=== PATIENT | female | born 1945 | race Caucasian/White ===

== ENCOUNTER 2017-05-31 11:01 | Observation (INO) | payer MEDICARE ==
[~2017-05-31] VITALS: Ht 154.9 cm; Wt 61.5 kg
[~2017-05-31 11:01] MED LIST: ACYC200O PO; AMBI10TA PO; BONI150T PO; ENAL10TA7 PO; METF-324 PO; PRIL2.5P OR; PROT40TA PO; SIMV10TA OR; SULFAMETHOXAZOLE PO; TOPI25TA2 OR; TRIMETHOPRIM PO; VIIB10TA OR; XANA1TAB6 PO
[2017-05-31 11:05] VITALS: BP 160/82; PULSE 69; RESP 17; TEMP 97.9; O2SAT 95
[2017-05-31] MEDS ORDERED: CEPH500C PO (11:24)
[2017-05-31] MEDS ORDERED: TRAM50TA PO (11:24)
[2017-05-31] MEDS ORDERED: SYSTSOL EACH EYE (11:24)
[2017-05-31] MEDS ORDERED: PROM12.54 PO (11:24)
[2017-05-31] MEDS ORDERED: DIPH25CA PO (11:24)
[2017-05-31] MEDS ORDERED: METF1000 PO (11:24)
[2017-05-31] MEDS ORDERED: ALPR1TAB3 PO (11:24)
[2017-05-31] MEDS ORDERED: SUMA50TA2 PO (11:24)
--- NOTE | 2017-05-31 11:57 | PD ---
HPI Chief Complaint: Altered Mental Status Time Seen by Provider: 11:19 Travel History International Travel<30 days: No Contact w/Intl Traveler<30days: No Traveled to known affect area: No History of Present Illness HPI This is a 65-year-old female who presents to the emergency department having had a procedure performed by Dr. 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 Dr. Denise remove the implant and performed a graft on the orbit from the patient's left buttock. Ever since Sunday the patient feels like she is more confused, not herself and having difficulty speaking and walking. She thought it maybe related to medications that she is taking. She is on tramadol for pain. She is a poor historian. Her friend with her says she is definitely not acting herself. I spoke to Dr. Denise on the phone who says that at the time of the procedure there was concern that the patient was mixing up her medications. A friend that was with her said that all of her pills were in the same container and they were concerned she wasn't taking her medications as prescribed. PFSH Past Medical History Hx Anticoagulant Therapy: No (NOT CURRENTLY) Anxiety: Yes (PANIC ATTACKS) Depression: Yes Cancer: No Diabetes: Yes Patient Takes Glucophage: No Diminished Hearing: No Headaches: Yes Hepatitis: No Hiatal Hernia: No Hypertension: Yes Neurologic: Yes (ACOUSTIC NEUROMA) Migraines: Yes Thyroid Disease: Yes (NO LONGER ON MEDS) Tetanus Vaccination: Unknown Influenza Vaccination: Yes ?: Not Menopausal: Yes Past Surgical History Abdominal Surgery: Yes (HERNIA) Eye Surgery: Yes (REPORTS 10 SURGERIES BETWEEN BOTH EYES) Oral Surgery: Yes (OPEN SEPTAL RECONSTRUCTION-ROGELIO TURBINECTOMY) Other Surgery: Yes (BACK SURGERY, BILATERAL HAND SURGERY) Social History Alcohol Use: No Tobacco Use: No Substance Use: No Allergies-Medications (Allergen,Severity, Reaction): Coded Allergies: erythromycin base (Unverified Allergy, Severe, swelling throat, 05/31/17) hydrocodone (Unverified Allergy, Severe, NAUSEA AND HIVES, 05/31/17) morphine (Unverified Allergy, Severe, INCREASED HEART RATE; PARANOID, 05/31) propoxyphene (Unverified Allergy, Severe, HIVES, DYSPHAGIA, SOB, 05/31/17) acetaminophen (Unverified Allergy, Intermediate, Hives, 05/31/17) doxycycline (Unverified Allergy, Unknown, 05/31/17) minocycline (Unverified Allergy, Unknown, 05/31/17) tigecycline (Unverified Allergy, Unknown, 05/31/17) Reported Meds & Prescriptions Reported Meds & Active Scripts Active Reported Systane Opth Drops (Polyethylene Glycol-Propylene Glycol Opth Drp) 0.4-0.3% Soln 1-2 Drop EACH EYE PRN PRN Tramadol (Tramadol HCl) 50 Mg Tab 50 Mg PO Q6H PRN Alprazolam 1 Mg Tab 1 Mg PO Q8H PRN Metformin (Metformin HCl) 1,000 Mg Tab 1,000 Mg PO BIDPC With meals Cephalexin 500 Mg Cap 500 Mg PO Q6H Diphenhydramine (Diphenhydramine HCl) 25 Mg Cap 25 Mg PO HS PRN Sumatriptan (Sumatriptan Succinate) 50 Mg Tab 50 Mg PO ONCE PRN If a satisfactory response has not been obtained at 2 hours, a second dose may be administered Promethazine (Promethazine HCl) 12.5 Mg Tab 25 Mg PO Q6H PRN [Sulfamet/Trim] 800 Mg PO BIDAC Review of Systems ROS Limitations: Poor Historian Physical Exam Narrative GENERAL:Well appearing, no acute distress SKIN: Focused skin assessment warm and dry. HEAD: Atraumatic. Normocephalic. EYES: Pupils equal and round. No injection or drainage. Left orbit is bandaged. ENT: Moist mucous membranes NECK: Trachea midline. CARDIOVASCULAR: Regular rate and rhythm. No murmur appreciated. RESPIRATORY: Clear to auscultation. Breath sounds equal bilaterally. GASTROINTESTINAL: Abdomen soft, non-tender, nondistended. MUSCULOSKELETAL: No obvious deformities. NEUROLOGICAL: Awake but confused. No obvious cranial nerve deficits. Expressive aphasia is present. No upper or lower extremity drift. No upper or lower extremity ataxia. PSYCHIATRIC: Appropriate mood and affect; insight and judgment normal. Data Data Last Documented VS Vital Signs Date Time Temp Pulse Resp B/P (MAP) Pulse Ox O2 Delivery O2 Flow Rate FiO2 05/31/17 12:41 16 96 Room Air 05/31/17 11:05 97.9 69 160/82 (108) Orders Orders Complete Blood Count With Diff (9/21/17 11:44) Comprehensive Metabolic Panel (05/31/17 11:44) ^ Insert Iv (05/31/17 11:44) Urinalysis - C+S If Indicated (05/31/17 11:44) Alcohol (Ethanol) (05/31/17 11:44) Ct Brain W/O Iv Contrast(Rout) (05/31/17 ) Ct Facial Bones W/O Iv Cont (05/31/17 ) Admit Order (Ed Use Only) (05/31/17 13:26) Labs Laboratory Tests Test 05/31/17 12:05 05/31/17 12:58 White Blood Count 8.3 TH/MM3 Red Blood Count 4.69 MIL/MM3 Hemoglobin 13.3 GM/DL Hematocrit 40.1 % Mean Corpuscular Volume 85.5 FL Mean Corpuscular Hemoglobin 28.3 PG Mean Corpuscular Hemoglobin Concent 33.1 % Red Cell Distribution Width 14.2 % Platelet Count 274 TH/MM3 Mean Platelet Volume 7.7 FL Neutrophils (%) (Auto) 82.6 % Lymphocytes (%) (Auto) 13.4 % Monocytes (%) (Auto) 3.6 % Eosinophils (%) (Auto) 0.2 % Basophils (%) (Auto) 0.2 % Neutrophils # (Auto) 6.9 TH/MM3 Lymphocytes # (Auto) 1.1 TH/MM3 Monocytes # (Auto) 0.3 TH/MM3 Eosinophils # (Auto) 0.0 TH/MM3 Basophils # (Auto) 0.0 TH/MM3 CBC Comment DIFF FINAL Differential Comment Blood Urea Nitrogen 13 MG/DL Creatinine 0.53 MG/DL Random Glucose 145 MG/DL Total Protein 7.2 GM/DL Albumin 3.8 GM/DL Calcium Level 8.9 MG/DL Alkaline Phosphatase 79 U/L Aspartate Amino Transf (AST/SGOT) 18 U/L Alanine Aminotransferase (ALT/SGPT) 24 U/L Total Bilirubin 0.4 MG/DL Sodium Level 137 MEQ/L Potassium Level 3.7 MEQ/L Chloride Level 100 MEQ/L Carbon Dioxide Level 29.6 MEQ/L Anion Gap 7 MEQ/L Estimat Glomerular Filtration Rate 116 ML/MIN Ethyl Alcohol Level LESS THAN 3 MG/DL Urine Collection Type CLEAN CATCH Urine Color YELLOW Urine Turbidity CLEAR Urine pH 6.0 Urine Specific [place] 1.021 Urine Protein TRACE mg/dL Urine Glucose (UA) NEG mg/dL Urine Ketones 15 mg/dL Urine Occult Blood MOD Urine Nitrite NEG Urine Bilirubin NEG Urine Leukocyte Esterase NEG Urine RBC 10-14 /hpf Urine WBC 0-2 /hpf Urine Squamous Epithelial Cells > 8 /hpf Urine Bacteria OCC /hpf Microscopic Urinalysis Comment CULT NOT INDICATED Urine Collection Time 12:58 [facility] Medical Decision Making Medical Screen Exam Complete: Yes Emergency Medical Condition: Yes Medical Record Reviewed: Yes (spoke to Dr. Denise over the phone who is the patient's separator operator [employer]. He reports that on Sunday she underwent implant removal and had a graft to the orbit performed with fat from her buttock area.) Interpretation(s) Afebrile, no tachycardia, hypertensive No leukocytosis Electrolytes are reassuring Alcohols negative Urinalysis: Some red blood cells, contaminated with squamous epithelial cells Last [address] 05/31/17 0000 Signed Impressions: Service Date/Time: , May 31, 2017 12:18 - CONCLUSION: 1. Postop changes of previous removal of the left optic globe with fat density in the central left orbit. There is left periorbital soft tissue swelling that is pre-septal. No post septal abnormal fluid collections. No acute bony or sinus abnormalities. Gómez Lewis MD Head CT 05/31/17 0000 Signed Impressions: Service Date/Time: May 12:18 - CONCLUSION: 1. Soft tissue swelling left orbit. 2. No acute intracranial abnormality. Jj White MD Differential Diagnosis Cerebral abscess, meningitis, stroke, polypharmacy Narrative Course This is a 65-year-old female who presents to the emergency department brought in by her friends who were concerned because she's had difficulty finding her words, increasing confusion and she's been disoriented and having memory trouble. On exam she does appear to have an expressive aphasia. She is unable to describe to me the surgery that she had earlier this week and she is unable to communicate to me her ophthalmologic history. She does seem confused. Labs were obtained which are reassuring. There is evidently some concern from her friends that the patient may be mixing up her medications. She also was started on tramadol recently from her surgery. Given the significant decline in her function in the past week I think it's reasonable to place her in observation for an MRI to rule out a central process. I spoke to her separator operator shellfish [employer] recommended CT of the orbits but had a very low suspicion for an infectious process. Patient will be admitted in the setting of altered mental status. Physician Communication Physician Communication Discussed with Dr. Martinez Diagnosis Primary Impression: Altered mental status Qualified Codes: R41.82 - Altered mental status, unspecified Admitting Information Admitting Physician Requests: Observation Madiha Wright MD May 31, 2017 11:57
[2017-05-31 12:15] LABS: AUTOMATED NEUTROPHIL # 6.9 TH/MM3 (1.8-7.7); BASOPHIL % 0.2 % (0.0-2.0); EOSINOPHIL % 0.2 % (0.0-4.0); HEMATOCRIT 40.1 % (35.0-46.0); HEMO FLAGS DIFF FINAL; LYMPH % 13.4 % (9.0-44.0); LYMPHOCYTE # 1.1 TH/MM3 (1.0-4.8); MEAN CELL VOLUME 85.5 FL (80.0-100.0); MEAN CORPUSCULAR HEMOGLOBIN 28.3 PG (27.0-34.0); MEAN CORPUSCULAR HGB CONC 33.1 % (32.0-36.0); MONO % 3.6 % (0.0-8.0); NEUT % 82.6 % (16.0-70.0); PLATELET COUNT 274 TH/MM3 (150-450); RED BLOOD COUNT 4.69 MIL/MM3 (4.00-5.30); RED CELL DISTRIBUTION WIDTH 14.2 % (11.6-17.2); WHITE BLOOD COUNT 8.3 TH/MM3 (4.0-11.0)
[2017-05-31 12:22] LABS: CHLORIDE 100 MEQ/L (98-107); POTASSIUM 3.7 MEQ/L (3.5-5.1); SODIUM (NA) 137 MEQ/L (136-145)
[2017-05-31 12:26] LABS: ANION GAP 7 MEQ/L (5-15); BICARBONATE 29.6 MEQ/L (21.0-32.0); BLOOD UREA NITROGEN 13 MG/DL (7-18)
[2017-05-31 12:27] LABS: ALCOHOL LESS THAN 3 MG/DL (0-5)
[2017-05-31 12:28] LABS: ALT (GPT) 24 U/L (10-53); AST (GOT) 18 U/L (15-37)
[2017-05-31 12:29] LABS: GLOMERULAR FILTRATION RATE 116 ML/MIN (>89)
[2017-05-31 12:30] LABS: TOTAL BILIRUBIN ADULT 0.4 MG/DL (0.2-1.0)
[2017-05-31 12:31] LABS: ALKALINE PHOSPHATASE 79 U/L (45-117)
--- NOTE | 2017-05-31 12:39 | RADRPT ---
EXAM DATE/TIME: 05/31/2017 12:18 [facility] COMPARISON: No previous studies available for comparison. INDICATIONS : Altered mental status. Cephalgia. Left orbital surgery 4 days ago. RADIATION DOSE: 62.91 CTDIvol (mGy) MEDICAL HISTORY : Diabetes mellitus type 2. Hypertension. SURGICAL HISTORY : Fusion, lumbar. Turbinectomy. Multiple eye surgeries. ENCOUNTER: Initial ACUITY: 4 - 6 days PAIN SCALE: 10/10 LOCATION: cranial TECHNIQUE: Multiple contiguous axial images were obtained of the head. Using automated exposure control and adj ustment of the mA and/or kV according to patient size, radiation dose was kept as low as reasonably a chievable to obtain optimal diagnostic quality images. DICOM format image data is available electro nically for review and comparison. FINDINGS: CEREBRUM: The ventricles are normal for age. No evidence of midline shift, mass lesion, hemorrhage or acute in farction. No extra-axial fluid collections are seen. POSTERIOR FOSSA: The cerebellum and brainstem are intact. The 4th ventricle is midline. The cerebellopontine angle i s unremarkable. EXTRACRANIAL: Soft tissue swelling over left orbit SKULL: The calvaria is intact. No evidence of skull fracture. CONCLUSION: 1. Soft tissue swelling left orbit. 2. No acute intracranial abnormality. Jj White MD on May 31, 2017 at 12:35 Board Certified Radiologist. This report was verified electronically.
[2017-05-31 13:09] LABS: BLOOD, URINE MOD (NEG); GLUCOSE,URINE NEG (NEG); KETONE, URINE 15 mg/dL (NEG); NITRITE,URINE NEG (NEG)
[2017-05-31 13:18] LABS: METHOD OF COLLECTION CLEAN CATCH; URINE COLOR YELLOW (YELLW/STRAW); WBC, URINE 0-2 /hpf (0-5)
[2017-05-31 13:19] LABS: BACTERIA, URINE OCC /hpf; COMMENT (UR) CULT NOT INDICATED; CULTURE IF INDICATED CULT NOT INDICATED; SQUAMOUS EPITHELIAL CELL URINE > 8 /hpf (0-5)
[2017-05-31] MEDS ORDERED: GADODIAMIDE PF 287 MG/ML 5 ML VIAL (for RAD MRI) IVCONTRAST ONE (13:28)
--- NOTE | 2017-05-31 13:36 | RADRPT ---
EXAM DATE/TIME: 05/31/2017 12:18 [facility] COMPARISON: CT BRAIN W/O CONTRAST, August 21, 2012, 20:12. INDICATIONS : Altered mental status. Cephalgia. Left orbital surgery 4 days ago. RADIATION DOSE: 34.86 CTDIvol (mGy) MEDICAL HISTORY : Diabetes mellitus type 2. Hypertension. SURGICAL HISTORY : Fusion, lumbar. Turbinectomy. Multiple eye surgeries. ENCOUNTER: Initial ACUITY: 4 - 6 days PAIN SCORE: 10/10 LOCATION: Left facial TECHNIQUE: Volumetric scanning of the facial bones was performed. Using automated exposure control and adjustme nt of the mA and/or kV according to patient size, radiation dose was kept as low as reasonably achiev able to obtain optimal diagnostic quality images. DICOM format image data is available electronicall y for review and comparison. FINDINGS: The left globe has been previously removed. There is fat density in the central left orbit, reportedl y status post recent surgery. There is left periorbital soft tissue swelling. No abnormal fluid colle ctions are identified in the post septal region of the left orbit. The right globe and orbit appear i ntact. The frontal sinus, sphenoid sinus, maxillary sinuses and ethmoid air cells are clear. Mastoid air denisa ls are clear. CONCLUSION: 1. Postop changes of previous removal of the left optic globe with fat density in the central left or bit. There is left periorbital soft tissue swelling that is pre-septal. No post septal abnormal fluid collections. No acute bony or sinus abnormalities. Gómez Lewis MD on May 31, 2017 at 13:29 Board Certified Radiologist. This report was verified electronically.
[2017-05-31 16:00] VITALS: BP 152/85; PULSE 70; RESP 16; TEMP 98.8; O2SAT 95
--- NOTE | 2017-05-31 16:11 | RADRPT ---
EXAM DATE/TIME: 05/31/2017 14:52 [facility] COMPARISON: No previous studies available for comparison. INDICATIONS : Acoustic NeuromaStroke. Confusion and aphasia. CONTRAST: 12 cc Omniscan (gadodiamide) IV MEDICAL HISTORY : Diabetes mellitus type 2. Acoustic neuroma. SURGICAL HISTORY : Left eye removed and neck surgery. ENCOUNTER: Initial ACUITY: 1 day PAIN SCORE: 0/10 LOCATION: Head. TECHNIQUE: Multiplanar, multisequence MRI of the brain was performed both prior to and following the administrat ion of paramagnetic contrast. FINDINGS: The left globe is been enucleated and there is fat in the central left orbit with some periorbital so ft tissue swelling. There is also edema and enhancement within the left orbit. Reportedly left orbit surgery was 4 days ago. No drainable fluid collections identified. Right globe intact. There is a small focus of enhancement in the right internal auditory canal measuring up to about 9 mm x 4 mm most characteristic of a small right-sided vestibular schwannoma. By report this is not signi ficantly changed from [facility]. No masses, hemorrhage or midline shift within the brain. No recent infarction. While mild white matte r ischemic changes. CONCLUSION: 1. No acute findings within the brain. Mild white matter ischemic changes. 2. Small vestibular schwannoma on the right side unchanged from 2012 MRI at [facility]. 3. 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 Reportedly there is recent left orbit surgery. No drainable fluid collections. Gómez Lewis MD on May 31, 2017 at 15:58 Board Certified Radiologist. This report was verified electronically.
[2017-05-31] MEDS ORDERED: SUMAtriptan SUCCINATE 50 MG TAB PO PRN (17:00)
[2017-05-31] MEDS ORDERED: SODIUM CHLORIDE 0.9% FLUSH 10 ML FLUSH IV FLUSH PRN (17:15)
[2017-05-31] MEDS ORDERED: NALOXONE HCL 0.4 MG/ML AMP IV PUSH PRN (17:15)
[2017-05-31] MEDS ORDERED: ARTIFICIAL TEARS OPTH SOLN 15 ML BTL EACH EYE PRN ×2 (17:30→19:15)
[2017-05-31] MEDS: CEPHALEXIN MONOHYDRATE 500 MG CAP PO SCH ×2 (18:26→23:59)
[2017-05-31] MEDS: metFORMIN HCL 500 MG TAB PO SCH (18:26)
[2017-05-31 20:00] VITALS: BP 158/83; PULSE 74; RESP 16; TEMP 98.3; O2SAT 97
[2017-05-31] MEDS: SODIUM CHLORIDE 0.9% FLUSH 10 ML FLUSH IV FLUSH SCH (20:05)
--- NOTE | 2017-05-31 22:49 | MH ---
cc: ARASELI PONCE M.D. DATE OF ADMISSION 05/31/2017 ADMISSION DIAGNOSIS Confusion HISTORY OF PRESENT ILLNESS The patient is a 65-year-old female. The patient is here with her friend who is in the room when I obtained the history. The patient had removal of her left eye prosthesis approximately four days ago from Dr. Denise and since then she has not been feeling quite herself and a little bit confused. The patient states she has been suffering for several months now with excruciating pain in her left eye that was sharp, throbbing, constant pain until she finally went to see the tool hardener. At that point, arrangements were made for surgery and this was undertaken four days ago. According to the patient, she was told that her eye was infected and she understood that they told her that it was septic. The patient was sent home after quite extensive difficult surgery with extensive cleaning, per the patient and her friend. She was sent home on Percocet and Zofran. The patient did not feel well. After arriving home, according to the friend, she took the Percocet and became very nauseous. They thought it was due to the Percocet. They called Dr. Denise. He recommended that she take Benadryl and switched her over to tramadol. This was on Sunday. According to her friend, she continued to use the tramadol for pain. She continued to complain of nausea and was also having some emesis. Apparently, she became concerned because at the time she felt that the patient was acting more confused and not quite herself. She noticed that her speech was a little bit different as well and thus brought her to the emergency room. The patient on her part just tells me that she has been having terrible pain in her eye for the last several months and felt that she waited too long to see medical attention. Unfortunately, she seems to be blaming herself for this. She complains primarily of the nausea to me, however, she does tell me that today the nausea is better and she was able to have some soup for dinner and a fruit bowel. She also states that she was having some headaches when she first came out of the surgery. She denies any headaches presently. She does have a history of migraines for which she takes Imitrex. I am a little bit unable to elicit from her whether or not these headaches were different from her regular migraine headaches. She was having a significant amount of the ocular pain postoperatively as well. This seems to have improved somewhat today. She denies any fevers or chills. She does say that she has been sweating. She just feels that she has not been quite herself, that too many things have been happening to her between the surgery and other facets of her life. Apparently she lost a son within the last year. She has lost three of her five children already. This seems to cause her a great deal of distress. Her friend told me that when she got to the home she had bottles of Xanax and Ambien and she was concerned that perhaps the patient had been mixing her medications and had removed all of these medications prior to her surgery. She was concerned that maybe we were dealing with some polypharmacy. Apparently, since first arriving to the emergency room and at the time that I see her this evening the patient tells me that she is feeling a little bit better. PAST MEDICAL HISTORY 1. Acoustic neuroma 2. Anxiety, 3. Degenerative joint disease, 4. Diabetes 5. She has a history in the past of having reflux, 6. Hypertension 7. Hypothyroidism 8. Migraine headaches PAST SURGICAL HISTORY 1. Abdominoplasty 2. Back surgery, 3. Breast surgery, 4. Ventral hernia repair. 5. Orbital implant and as stated on Sunday she had removal of orbital implant with orbit dermis fat graft from the left buttock. Apparently at the time of the surgery, she was told she had infection. She was also placed on antibiotics which she has been taking. SOCIAL HISTORY She does not currently smoke or consume alcohol. SOCIAL HISTORY She has had three of her children pass away. She currently is living with her daughter and grandson in [place] and travels back and forth. She is not presently employed. MEDICATIONS When she came into the emergency room include 1. Cephalexin 500 mg every 6 hours 2. Alprazolam 1 mg p.o. every 8 hours p.r.n. anxiety Does not appear that she was taking that regularly 3. Imitrex for her migraines 4. Sustane ophthalmic drops 5. Metformin 1000 mg twice a day for diabetes. ALLERGIES ACETAMINOPHEN BEE STINGS DARVOCET DARVON ERYTHROMYCIN LORTAB MORPHINE NEOMYCIN TETRACYCLINE REVIEW OF SYSTEMS See HPI, otherwise noncontributory. PHYSICAL EXAMINATION VITAL SIGNS: temperature is 98.8, pulse is 70, respirations 16, blood pressure is 152/85, pulse ox is 95% on room air. GENERAL: She is alert and oriented sitting on the hospital bed. HEENT: She is normocephalic. her left eye is bandaged and protected. She has an area of ecchymosis over her left nostril. She has a clear oropharynx. NECK: Supple. LUNGS: Clear to auscultation. HEART: Regular rate and rhythm ABDOMEN: Benign. EXTREMITIES: No clubbing, cyanosis or edema. SKIN: A little bit warm and moist to touch even though she did not have any documented fever. LABORATORY DATA Done when she came in Sodium of 137, potassium of 3.7, BUN of 13, creatinine 0.53, random glucose was 145. LFTs were normal. White count was normal. Hemoglobin was 13.3 with hematocrit of 40.1, white count was 8.3, platelet count was 274, neutrophils were 82.6. Her urine showed moderate occult blood but a culture was not indicated. Her ethyl alcohol level was less than three. IMAGING STUDIES CT scan done showed postop changes of previous removal of left optic lobe with fat density in the central left orbit. There is left periorbital soft tissue swelling that is preseptal. Note post septal abnormal fluid collections, no acute bony or sinus abnormalities. CT scan of the brain showed soft tissue swelling in the left orbit, no acute intracranial abnormality. MRI of the brain showed no acute findings within the brain, mild white matter ischemic changes, small vestibular schwannoma on the right sided unchanged from the 2012 MRI at [facility]. Enucleation of left lobe with some edema and enhancement within the left orbit. Reportedly, there is recent left orbit surgery. No drainable fluid collections. ASSESSMENT/PLAN A 71-year-old female brought to the hospital by her friend for concern for confusion and perhaps polypharmacy. At this point, she does not appear to have had any kind of neurological event. She did seem very anxious when I first sat down to interview her. I must have sat with her for a little bit over an hour and she seemed to calm down at we were talking. She certainly may have been having some side effects of the medication, but presently she does not seem in my opinion to be confused, just a little bit more like she is anxious and agitated. Her speech was clear. I found no aphasia. There was no aphasia as expressed by the ER doctor to me on the phone. I think we will continue to monitor her overnight, continue to keep her off her multiple medications and see how she does. 2. For the recent surgery she has had. I am a little bit concerned. I do not think there is an infectious process that may be involved causing some of these behavior changes, however, I am not an tool hardener to evaluate her eye. She is on the Cephalexin. I will continue that. She seems to have no evidence of fever at this point. I will try to contact Dr. Denise tomorrow and consult with him regarding her situation on whether or not I need to get one of the tool hardener here to evaluate her eye as well. 3. Otherwise, for her diabetes we will continue her diabetic medications and diet. Further recommendations as the case develops. MD ANUJA Wright/ /9:32 PM /10:08 PM
[2017-06-01] VITALS: BP 143/81; PULSE 71; RESP 16; TEMP 98.2; O2SAT 97
[2017-06-01 06:00] VITALS: BP 150/78; PULSE 73; RESP 16; TEMP 98.5; O2SAT 97
[2017-06-01] MEDS: CEPHALEXIN MONOHYDRATE 500 MG CAP PO SCH ×2 (06:19→11:50)
[2017-06-01 08:00] VITALS: BP 162/84; PULSE 80; RESP 20; TEMP 97.9; O2SAT 98
--- NOTE | 2017-06-01 11:48 | HHI.PR ---
Subjective Remarks Feels more herself this am. States her nausea is improved. Small amt of diarrhea. No fever or chills. Her eye pain is there but is no longer the throbbing in it, Objective Vitals Vital Signs Date Time Temp Pulse Resp B/P (MAP) Pulse Ox O2 Delivery O2 Flow Rate FiO2 06/01/17 08:00 97.9 80 20 162/84 (110) 98 06/01/17 06:00 98.5 73 16 150/78 (102) 97 06/01/17 00:00 98.2 71 16 143/81 (101) 97 05/31/17 20:00 98.3 74 16 158/83 (108) 97 05/31/17 16:00 98.8 70 16 152/85 (107) 95 05/31/17 12:41 16 96 Room Air Result Diagram: 05/31/17 1205 05/31/17 1205 Objective Remarks alert sitting at side of bed left eye bandaged lungs cta heart rrr no edema A/P Problem List: (1) Altered mental status ICD Codes: R41.82 - Altered mental status, unspecified Status: Resolved Plan: MRI was negative, she is clearer this am. She tells me she stutters a bit when she is anxious . No longer has nausea. She had never taken tramadol in the past and we discussed that the combination of the anesthesia and pain medications may have contributed to her transient episode of confusion. Assessment and Plan Transient episode of confusion resolved. She had stated that she understood that her eye was "septic" or infected. I was actually able to speak to Sr Denise and he clarified that she had no infection when she had the surgery. He offered to see her this afternoon at the [place] office. I relayed the information to her that she had no infection at the time of the surgery and that the cephalexin was more a prophylactic measure. She will make arrangements with her grandson to see Dr Denise today. Her pain level is improved and I advised her to not take the tramadol. Problem Qualifiers (1) Altered mental status: Qualified Codes: R41.82 - Altered mental status, unspecified Valeri Martinez MD Jun 01, 2017 11:48
[2017-06-01] MEDS: metFORMIN HCL 500 MG TAB PO SCH (11:50)
[2017-06-01] MEDS: SODIUM CHLORIDE 0.9% FLUSH 10 ML FLUSH IV FLUSH SCH (11:50)
== END 2017-06-01 12:14 | disposition home or self-care (01) ==
LOC: EDBD → PHED 11:01 → PHEDA 13:27 → PH5A 15:32
PROVIDERS: ADMIT Legal Medicine; ATTEND Legal Medicine
DX: R41.82 Altered mental status, unspecified (principal); I10 Essential (primary) hypertension; G43.909 Migraine, unspecified, not intractable, without status migrainosus; K21.9 Gastro-esophageal reflux disease without esophagitis; F41.0 Panic disorder [episodic paroxysmal anxiety]; E03.9 Hypothyroidism, unspecified; E11.9 Type 2 diabetes mellitus without complications; Z79.84 Long term (current) use of oral hypoglycemic drugs; Z97.0 Presence of artificial eye
CPT/HCPCS: 70450; 70486; 70553; 80053; 80307; 81001; 85025; A9579; G0378; G8987-GP; G8988-GP

== ENCOUNTER 2017-06-03 06:26 | Inpatient (IN) | payer MEDICARE ==
[2017-06-03] VITALS (10 sets, daily range): BP systolic 127–188; BP diastolic 64–98; PULSE 60–90; RESP 16–20; TEMP 98.4–99.1; O2SAT 94–98
[~2017-06-03] VITALS: Ht 157.5 cm; Wt 65.0 kg
[~2017-06-03 06:26] MED LIST changes: -ACYC200O PO; +ALPR1TAB3 PO; -AMBI10TA PO; -BONI150T PO; +CEPH500C PO; -ENAL10TA7 PO; -METF-324 PO; +METF1000 PO; -PRIL2.5P OR; -PROT40TA PO; -SIMV10TA OR; -SULFAMETHOXAZOLE PO; +SUMA50TA2 PO; +SYSTSOL EACH EYE; -TOPI25TA2 OR; -TRIMETHOPRIM PO; -VIIB10TA OR; -XANA1TAB6 PO
[2017-06-03] MEDS ORDERED: PROM25TA10 PO (07:17)
[2017-06-03] MEDS ORDERED: BACIOIN6 LEFT EYE (07:17)
[2017-06-03] MEDS ORDERED: TRAM50TA PO (07:17)
[2017-06-03] MEDS ORDERED: SODIUM CHLORIDE 0.9% FLUSH 5 ML FLUSH IV FLUSH PRN (07:30)
[2017-06-03 08:00] LABS: AUTOMATED NEUTROPHIL # 6.9 TH/MM3 (1.8-7.7); BASOPHIL % 0.4 % (0.0-2.0); EOSINOPHIL % 0.3 % (0.0-4.0); HEMATOCRIT 41.8 % (35.0-46.0); HEMO FLAGS DIFF FINAL; LYMPH % 22.5 % (9.0-44.0); LYMPHOCYTE # 2.3 TH/MM3 (1.0-4.8); MEAN CELL VOLUME 86.6 FL (80.0-100.0); MEAN CORPUSCULAR HEMOGLOBIN 28.2 PG (27.0-34.0); MEAN CORPUSCULAR HGB CONC 32.5 % (32.0-36.0); NEUT % 67.8 % (16.0-70.0); PLATELET COUNT 325 TH/MM3 (150-450); RED BLOOD COUNT 4.83 MIL/MM3 (4.00-5.30); RED CELL DISTRIBUTION WIDTH 14.9 % (11.6-17.2); WHITE BLOOD COUNT 10.2 TH/MM3 (4.0-11.0)
--- NOTE | 2017-06-03 08:07 | RADRPT ---
EXAM DATE/TIME: 06/03/2017 07:41 [place] COMPARISON: CT BRAIN W/O CONTRAST, August 21, 2012, 20:12. MRI BRAIN W & W/O CONTRAST, May 31, 2017, 14 :52. CT BRAIN W/O CONTRAST, May 31, 2017, 12:18. INDICATIONS : Altered mental status following eye surgery six days ago. RADIATION DOSE: 56.35 CTDIvol (mGy) MEDICAL HISTORY : Hypertension. Cardiovascular disease SURGICAL HISTORY : Eye. ENCOUNTER: Initial ACUITY: 1 day PAIN SCALE: 0/10 LOCATION: cranial TECHNIQUE: Multiple contiguous axial images were obtained of the head. Using automated exposure control and adj ustment of the mA and/or kV according to patient size, radiation dose was kept as low as reasonably a chievable to obtain optimal diagnostic quality images. DICOM format image data is available electro nically for review and comparison. FINDINGS: CEREBRUM: The ventricles are normal. There is mild cerebral atrophy with a stable mild periventricular white ma tter low attenuation. No evidence of midline shift, mass lesion, hemorrhage or acute infarction. No extra-axial fluid collections are seen. POSTERIOR FOSSA: The cerebellum and brainstem demonstrate no acute finding. The 4th ventricle is midline. The cerebe llopontine angle is unremarkable. EXTRACRANIAL: The left orbit and globe have a similar appearance to the prior study. There is very low density in t he expected region of the globe. There is mild stranding of the retroconal fat. Optic nerve and extra ocular muscles have a stable appearance. There is decreased swelling compared to the prior study from 3 days ago. SKULL: There is hyperostosis frontalis. No evidence of skull fracture. CONCLUSION: 1. No acute intracranial abnormality is identified. There are stable chronic changes, as above. 2. Left orbit demonstrates a mild degree of less swelling than on the study from 3 days ago but other hoyos appears similar following surgery. Jericho Gilmore MD on June 03, 2017 at 8:01 Board Certified Radiologist. This report was verified electronically.
[2017-06-03 08:08] LABS: APTT (PATIENT) 23.5 SEC (24.3-30.1); PROTHROMBIN TIME - PATIENT 11.2 SEC (9.8-11.6)
--- NOTE | 2017-06-03 08:47 | PD ---
HPI Chief Complaint: Altered Mental Status Time Seen by Provider: 07:32 Travel History International Travel<30 days: No Contact w/Intl Traveler<30days: No Traveled to known affect area: No History of Present Illness HPI 65-year-old female with history of diabetes, hypertension, recently had left eye surgery in [place] due to scarring and inflammation, had been admitted a few days ago for altered mental status and released 2 days ago, presents back to the ER today brought in by her friend because of disorientation. Her friend states that the patient has never been quite right since her surgery, disoriented, has episodes of agitation and disorientation, does not recognize where she is at times, doesn't recognize her friend at times. Patient is currently fairly disoriented in the ER. She is not able to give me a coherent history but was going on. Modifying Factors: None Associated Signs & Symptoms: Worsening altered mental status since surgery a few days ago Risk Factors: Left eye surgery PFSH Past Medical History Hx Anticoagulant Therapy: No (NOT CURRENTLY) Arthritis: No Anxiety: Yes Depression: No Heart Rhythm Problems: No Cancer: No Cardiovascular Problems: Yes High Cholesterol: No Chest Pain: No Congestive Heart Failure: No Diabetes: Yes Patient Takes Glucophage: Yes Diminished Hearing: No Endocrine: Yes Genitourinary: No Headaches: Yes Hepatitis: No Hiatal Hernia: No Hypertension: Yes Immune Disorder: No Medical other: Yes (FIBROMYALGIA; MULTIPLE UTI) Musculoskeletal: Yes Neurologic: No Psychiatric: No Reproductive: No Respiratory: No Migraines: Yes Thyroid Disease: Yes Tetanus Vaccination: < 5 Years Influenza Vaccination: Yes ?: Unknown Menopausal: Yes Past Surgical History Abdominal Surgery: Yes Cardiac Surgery: No Ear Surgery: No Endocrine Surgery: No Eye Surgery: Yes Genitourinary Surgery: No Gynecologic Surgery: No Neurologic Surgery: Yes Oral Surgery: Yes Thoracic Surgery: No Other Surgery: Yes (BACK SURGERY, BILATERAL HAND SURGERY) Social History Alcohol Use: Yes (seldom) Tobacco Use: No Substance Use: No Allergies-Medications (Allergen,Severity, Reaction): Coded Allergies: erythromycin base (Unverified Allergy, Severe, swelling throat, 05/31/17) hydrocodone (Unverified Allergy, Severe, NAUSEA AND HIVES, 05/31/17) morphine (Unverified Allergy, Severe, INCREASED HEART RATE; PARANOID, 05/31) propoxyphene (Unverified Allergy, Severe, HIVES, DYSPHAGIA, SOB, 05/31/17) acetaminophen (Unverified Allergy, Intermediate, Hives, 05/31/17) doxycycline (Unverified Allergy, Unknown, 05/31/17) minocycline (Unverified Allergy, Unknown, 05/31/17) tigecycline (Unverified Allergy, Unknown, 05/31/17) Reported Meds & Prescriptions Reported Meds & Active Scripts Active Reported Bacitracin Opth Oint 500 Unit/Gm Oint 1 Applic LEFT EYE TID Tramadol (Tramadol HCl) 50 Mg Tab 50 Mg PO Q4H PRN Phenergan (Promethazine HCl) 25 Mg Tablet 25 Mg PO Q6H PRN Systane Opth Drops (Polyethylene Glycol-Propylene Glycol Opth Drp) 0.4-0.3% Soln 1-2 Drop EACH EYE PRN PRN Alprazolam 1 Mg Tab 1 Mg PO Q8H PRN Metformin (Metformin HCl) 1,000 Mg Tab 1,000 Mg PO BIDPC With meals Cephalexin 500 Mg Cap 500 Mg PO Q6H Sumatriptan (Sumatriptan Succinate) 50 Mg Tab 50 Mg PO ONCE PRN If a satisfactory response has not been obtained at 2 hours, a second dose may be administered Review of Systems ROS Limitations: Altered Mental Status Physical Exam Narrative GENERAL: Well-developed elderly white female patient currently in moderate distress, awake, alert, fairly disoriented. Not able to give me a coherent history. SKIN: Focused skin assessment warm/dry. HEAD: Atraumatic. Normocephalic. EYES: Right eye pupil is round, reactive to light. Left eye is sutured shut. No significant edema. Notable ecchymosis of the eyelid. ENT: No nasal bleeding or discharge. Mucous membranes pink and moist. NECK: Trachea midline. No JVD. CARDIOVASCULAR: Regular rate and rhythm. No murmur appreciated. RESPIRATORY: No accessory muscle use. Clear to auscultation. Breath sounds equal bilaterally. GASTROINTESTINAL: Abdomen soft, non-tender, nondistended. Hepatic and splenic margins not palpable. MUSCULOSKELETAL: No obvious deformities. No clubbing. No cyanosis. No edema. NEUROLOGICAL: Awake and alert. Fairly disoriented. No obvious cranial nerve deficits. Motor grossly within normal limits. Normal speech. PSYCHIATRIC: Disoriented; insight and judgment. Poor. Data Data Last Documented VS Vital Signs Date Time Temp Pulse Resp B/P (MAP) Pulse Ox O2 Delivery O2 Flow Rate FiO2 06/03/17 07:44 18 98 Room Air 06/03/17 07:17 80 06/03/17 06:56 98.4 Orders Orders Electrocardiogram (06/03/17 07:25) Complete Blood Count With Diff (06/03/17 07:25) Comprehensive Metabolic Panel (06/03/17 07:25) Prothrombin Time / Inr (Pt) (06/03/17 07:25) Act Partial Throm Time (Ptt) (06/03/17 07:25) Troponin I (06/03/17 07:25) Urinalysis - C+S If Indicated (06/03/17 07:25) Blood Glucose (06/03/17 07:25) Ecg Monitoring (06/03/17 07:25) Iv Access Insert/Monitor (06/03/17 07:25) Oximetry (06/03/17 07:25) Sodium Chloride 0.9% Flush (Ns Flush) (06/03/17 07:30) Drug Screen, Random Urine (06/03/17 07:25) Alcohol (Ethanol) (06/03/17 07:25) Ct Brain W/O Iv Contrast(Rout) (06/03/17 07:32) Ns + Kcl 20 Meq Inj (Ns + Kcl 20 Meq Inj (06/03/17 09:15) Labs Laboratory Tests Test 06/03/17 07:00 White Blood Count 10.2 TH/MM3 Red Blood Count 4.83 MIL/MM3 Hemoglobin 13.6 GM/DL Hematocrit 41.8 % Mean Corpuscular Volume 86.6 FL Mean Corpuscular Hemoglobin 28.2 PG Mean Corpuscular Hemoglobin Concent 32.5 % Red Cell Distribution Width 14.9 % Platelet Count 325 TH/MM3 Mean Platelet Volume 8.4 FL Neutrophils (%) (Auto) 67.8 % Lymphocytes (%) (Auto) 22.5 % Monocytes (%) (Auto) 9.0 % Eosinophils (%) (Auto) 0.3 % Basophils (%) (Auto) 0.4 % Neutrophils # (Auto) 6.9 TH/MM3 Lymphocytes # (Auto) 2.3 TH/MM3 Monocytes # (Auto) 0.9 TH/MM3 Eosinophils # (Auto) 0.0 TH/MM3 Basophils # (Auto) 0.0 TH/MM3 CBC Comment DIFF FINAL Differential Comment Prothrombin Time 11.2 SEC Prothromb Time International Ratio 1.0 RATIO Activated Partial Thromboplast Time 23.5 SEC Blood Urea Nitrogen 17 MG/DL Creatinine 0.84 MG/DL Random Glucose 145 MG/DL Total Protein 7.6 GM/DL Albumin 4.1 GM/DL Calcium Level 9.1 MG/DL Alkaline Phosphatase 78 U/L Aspartate Amino Transf (AST/SGOT) 18 U/L Alanine Aminotransferase (ALT/SGPT) 25 U/L Total Bilirubin 0.5 MG/DL Sodium Level 136 MEQ/L Potassium Level 2.9 MEQ/L Chloride Level 99 MEQ/L Carbon Dioxide Level 28.1 MEQ/L Anion Gap 9 MEQ/L Estimat Glomerular Filtration Rate 68 ML/MIN Troponin I LESS THAN 0.02 NG/ML Ethyl Alcohol Level LESS THAN 3 MG/DL MDM Medical Decision Making Medical Screen Exam Complete: Yes Emergency Medical Condition: Yes Medical Record Reviewed: Yes Interpretation(s) EKG shows NSR, no ST elevation or depression, and no arrhythmias. No significant T-wave inversions. Laboratory Tests Test 06/03/17 07:00 Monocytes (%) (Auto) 9.0 % (0.0-8.0) Activated Partial Thromboplast Time 23.5 SEC (24.3-30.1) Random Glucose 145 MG/DL (74-106) Potassium Level 2.9 MEQ/L (3.5-5.1) Estimat Glomerular Filtration Rate 68 ML/MIN (>89) Troponin I LESS THAN 0.02 NG/ML Last [address] 06/03/17 0732 Signed Impressions: Service Date/Time: Saturday, June 03, 2017 07:41 - CONCLUSION: 1. No acute intracranial abnormality is identified. There are stable chronic changes, as above. 2. Left orbit demonstrates a mild degree of less swelling than on the study from 3 days ago but otherwise appears similar following surgery. Jericho Gilmore MD Differential Diagnosis Altered mental status: Metabolic issues versus sepsis versus medication side effect versus withdrawal syndromes versus acute intracranial processes Narrative Course Vital signs are stable in the ER, CAT scan did not show any signs of acute processes and metabolic panel was otherwise unremarkable except for hypokalemia. IV potassium was given in the ER. Patient is still fairly disoriented in the ER and at this point, will need to be admitted for further evaluation and treatment. Case was discussed with Dr. Abdul for evaluation and admission. Diagnosis Primary Impression: Altered mental status Additional Impression: Hypokalemia Admitting Information Admitting Physician Requests: Admit Coy Wright MD Jun 03, 2017 08:47
[2017-06-03 08:54] LABS: ALKALINE PHOSPHATASE 78 U/L (45-117); ALT (GPT) 25 U/L (10-53); ANION GAP 9 MEQ/L (5-15); AST (GOT) 18 U/L (15-37); BICARBONATE 28.1 MEQ/L (21.0-32.0); BLOOD UREA NITROGEN 17 MG/DL (7-18); CHLORIDE 99 MEQ/L (98-107); GLOMERULAR FILTRATION RATE 68 ML/MIN (>89); SODIUM (NA) 136 MEQ/L (136-145); TOTAL BILIRUBIN ADULT 0.5 MG/DL (0.2-1.0)
[2017-06-03 08:58] LABS: ALCOHOL LESS THAN 3 MG/DL (0-5)
[2017-06-03 09:01] LABS: POTASSIUM 2.9 MEQ/L (3.5-5.1)
[2017-06-03] MEDS ORDERED: NS + KCL 20 MEQ INJ 1,000 ML IV ONE (09:15)
--- NOTE | 2017-06-03 09:56 | HHI.HP ---
HPI Service [facility] Hospitalists Primary Care Physician Dr. Ponce Admission Diagnosis altered mental status/hypokalemia Chief Complaint: AMS Travel History International Travel<30 Days: No Contact w/Intl Traveler <30 Da: No Traveled to Known Affected Are: No History of Present Illness Ms. Cowart is a 71 y/o female with HTN, diabetes, hyperlipidemia and hypothyroidism. Pt recently underwent removal of left orbital implant with left orbital dermis fat graft from left buttock and left lower eyelid retraction repair on 05/28/[address] Denise in [place]. After surgery pt was given Percocet and started having vomiting which she attributed to an allergy to Tylenol. The pain meds were changed to tramadol and she was given Zofran and Benadryl. The pt continued to have vomiting and the Zofran was changed to Phenergan. Pts family and friends who are bedside provide the history as the pt is unable to provide much meaningful information. The patient has reportedly had been confused on and off since after the surgery. She was admitted to the [facility] on 05/31. 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 Reportedly there is recent left orbit surgery. No drainable fluid collections. She also had a Maxillofacial CT W/O IV Contrast (05/31/17) which noted post-op changes of previous removal of the left optic globe with fat density in the central left orbit, left periorbital soft tissue swelling that is pre-septal, no post-septal abnormal fluid collections, and no acute bony or sinus abnormalities. It was felt that at time that the confusion might be medication related, specifically the Ultram and was recommended to stop the Ultram. According to the documentation the pt improved clinically with regards to her mental status and was discharged from [facility] on 06/01. Pt continued to take the Ultram and the Phenergan following that discharge. But she was not taking the Ultram very often per the family, pt has taken 3 tablets since Sunday, two of which were yesterday. Pt has not been taking the Benadryl, she only took one dose after the Percocet the first day after surgery. Pt was discharged and was seen by Dr. Denise on Sunday, 06/01, and family reports that the doctor felt that the pt was doing well with regards to the surgery. Family felt that the patient continued to be confused following discharge and yesterday this seemed to worsen. Her family friend has been taking care of her since surgery and reports that she has been exhibiting a lot of confusion and bizarre behavior in the last 24 hours. She reportedly placed dog food in her suitcase and put her tooth brush in the dog crates and was packing clothes in plastic bags. She also reports that the pt seemed to be somewhat aggressive last night which is extremely unusual for her. Pt reports that she "feels hot" for the last day or so and feels that its getting worse and feels "tired" but otherwise denies any other complaints. No reported N/V, SOB, chest pain, abd pain. Pts last BM was Sunday, 06/01. Pt hadn't had a BM since the Sunday prior to surgery. Pt is alert and talking. She is not oriented to time, place or situation. She recognizes her family and friends present at bedside. Pt has not been taking her Enalapril, Levothyroxine, Simvastatin, Ambien since her surgery. Its not clear if the patient has been taking her Xanax or not. Pt had access to the medication but as far as the family and friends are aware she had not been taking it. Review of Systems ROS Limitations: Altered Mental Status Constitutional: DENIES: Fever, Chills Respiratory: DENIES: Shortness of breath Cardiovascular: DENIES: Chest pain Gastrointestinal: DENIES: Abdominal pain, Diarrhea, Nausea, Vomiting Genitourinary: DENIES: Urinary incontinence Integumentary: DENIES: Rash Psychiatric: COMPLAINS OF: Confusion, Agitation Past Family Social History Past Medical History Hx of retinal detachment/infection ([id number]) causing loss of left eye/ anophthalmic socket OS with orbital implant Acoustic neuroma Diabetes mellitus HTN Hypothyroidism Migraine headaches, 3-4 times per week Degenerative joint disease Anxiety GERD Recurrent UTIs Past Surgical History Removal of left orbital implant with left orbital dermis fat graft from left buttock and left lower eyelid retraction repair on 05/28/[address] Denise Multiple surgeries for retinal detachment/infection of the left eye ([id number]) resulting in loss of the left eye and orbital prosthesis Abdominoplasty and hernia repair Bilateral breast augmentation in 2009 Bilateral carpal tunnel release Lumbar surgery Cystoscopy EGD/colonoscopy Reported Medications Bacitracin Opth Oint 500 Unit/Gm Oint 1 Applic LEFT EYE TID Tramadol (Tramadol HCl) 50 Mg Tab 50 Mg PO Q4H PRN Phenergan (Promethazine HCl) 25 Mg Tablet 25 Mg PO Q6H PRN Systane Opth Drops (Polyethylene Glycol-Propylene Glycol Opth Drp) 0.4-0.3% Soln 1-2 Drop EACH EYE PRN PRN Cephalexin 500 Mg Cap 500 Mg PO Q6H -Sumatriptan (Sumatriptan Succinate) 50 Mg Tab 50 Mg PO ONCE PRN -Alprazolam 1 Mg PO Q8H PRN, has not been taken since prior to surgery and pt rarely uses this. -Metformin (Metformin HCl) 1,000 Mg (1/2 tablet) PO BIDPC --Levothyroxine 25mcg PO DAILY, has not been taken since surgery --Enalapril 10mg PO DAILY, has not been taking since surgery --Simvastatin 20Mg PO DAILY, has not been taken since surgery --Ambien 10Mg PO HS PRN Insomnia, has not been taken since prior to surgery Allergies: Coded Allergies: erythromycin base (Unverified Allergy, Severe, swelling throat, 05/31/17) hydrocodone (Unverified Allergy, Severe, NAUSEA AND HIVES, 05/31/17) morphine (Unverified Allergy, Severe, INCREASED HEART RATE; PARANOID, 05/31) propoxyphene (Unverified Allergy, Severe, HIVES, DYSPHAGIA, SOB, 05/31/17) acetaminophen (Unverified Allergy, Intermediate, Hives, 05/31/17) doxycycline (Unverified Allergy, Unknown, 05/31/17) minocycline (Unverified Allergy, Unknown, 05/31/17) tigecycline (Unverified Allergy, Unknown, 05/31/17) Family History Mother from thyroid cancer Social History Denies any alcohol, tobacco or illicit drug use She lives with her daughter and grandson in [place] and travels back and forth between there and here Not currently employed Physical Exam Vital Signs Vital Signs Date Time Temp Pulse Resp B/P (MAP) Pulse Ox O2 Delivery O2 Flow Rate FiO2 06/03/17 07:44 18 98 Room Air 06/03/17 07:17 80 18 127/91 (103) 98 Room Air 06/03/17 07:02 97 Room Air 06/03/17 06:56 98.4 80 16 144/88 (106) 97 Physical Exam GENERAL: This is a well-nourished, well-developed patient, in no apparent distress. SKIN: No rashes, ecchymoses or lesions. Cool and dry. HEENT: Atraumatic. Normocephalic. No temporal or scalp tenderness. Left eye lid is sutured closed, ecchymosis around the left orbit. Right eye twitching but pupil is reactive to light. Airway patent. NECK: Trachea midline, supple, nontender CARDIO: Regular. RESP: CTA bilaterally. No wheezes, rales, or rhonchi. ABD: +BS, soft, non-tender, nondistended. EXT: Extremities without clubbing, cyanosis, or edema. NEURO: Awake, oriented to self only. Pt does not follow commands. Upper extremities and hands are somewhat twitching as well. Laboratory Laboratory Tests Test 06/03/17 07:00 White Blood Count 10.2 Red Blood Count 4.83 Hemoglobin 13.6 Hematocrit 41.8 Mean Corpuscular Volume 86.6 Mean Corpuscular Hemoglobin 28.2 Mean Corpuscular Hemoglobin Concent 32.5 Red Cell Distribution Width 14.9 Platelet Count 325 Mean Platelet Volume 8.4 Neutrophils (%) (Auto) 67.8 Lymphocytes (%) (Auto) 22.5 Monocytes (%) (Auto) 9.0 Eosinophils (%) (Auto) 0.3 Basophils (%) (Auto) 0.4 Neutrophils # (Auto) 6.9 Lymphocytes # (Auto) 2.3 Monocytes # (Auto) 0.9 Eosinophils # (Auto) 0.0 Basophils # (Auto) 0.0 CBC Comment DIFF FINAL Differential Comment Prothrombin Time 11.2 Prothromb Time International Ratio 1.0 Activated Partial Thromboplast Time 23.5 Blood Urea Nitrogen 17 Creatinine 0.84 Random Glucose 145 Total Protein 7.6 Albumin 4.1 Calcium Level 9.1 Alkaline Phosphatase 78 Aspartate Amino Transf (AST/SGOT) 18 Alanine Aminotransferase (ALT/SGPT) 25 Total Bilirubin 0.5 Sodium Level 136 Potassium Level 2.9 Chloride Level 99 Carbon Dioxide Level 28.1 Anion Gap 9 Estimat Glomerular Filtration Rate 68 Troponin I LESS THAN 0.02 Ethyl Alcohol Level LESS THAN 3 Result Diagram: 06/03/17 0700 06/03/17 0700 Imaging Last Impressions Head CT 06/03/17 0732 Signed Impressions: Service Date/Time: Saturday, June 03, 2017 07:41 - CONCLUSION: 1. No acute intracranial abnormality is identified. There are stable chronic changes, as above. 2. Left orbit demonstrates a mild degree of less swelling than on the study from 3 days ago but otherwise appears similar following surgery. Jericho Gilmore MD MRI Brain (05/31/17) 1. No acute findings within the brain. Mild white matter ischemic changes. 2. 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 3. 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 Reportedly there is recent left orbit surgery. No drainable fluid collections. Maxillofacial CT W/O IV Contrast (05/31/17): 1. Post-op changes of previous removal of the left optic globe with fat density in the central left orbit. There is left periorbital soft tissue swelling that is pre-septal. No post-septal abnormal fluid collections. No acute bony or sinus abnormalities. Septic Shock Reassessment Heart: Regular rate and rhythm Lungs: Clear Skin: Warm Caprini VTE Risk Assessment Caprini VTE Risk Assessment: Mod/High Risk (score >= 2) Caprini Risk Assessment Model Point Value = 1 Point Value = 2 Point Value = 3 Point Value = 5 Age 41-60 Minor surgery BMI > 25 kg/m2 Swollen legs Varicose veins or History of unexplained or recurrent spontaneous Oral contraceptives or hormone replacement Sepsis (< 1 month) Serious lung disease, including pneumonia (< 1 month) Abnormal pulmonary function Acute myocardial infarction Congestive heart failure (< 1 month) History of inflammatory bowel disease Medical patient at bed rest Age 61-74 Arthroscopic surgery Major open surgery (> 45 min) Laparoscopic surgery (> 45 min) Malignancy Confined to bed (> 72 hours) Immobilizing plaster cast Central venous access Age >= 75 History of VTE Family history of VTE Factor V Leiden Prothrombin [id number] Lupus anticoagulant Anticardiolipin antibodies Elevated serum homocysteine Heparin-induced thrombocytopenia Other congenital or acquired thrombophilia Stroke (< 1 month) Elective arthroplasty Hip, pelvis, or leg fracture Acute spinal cord injury (< 1 month) Prophylaxis Regimen Total Risk Factor Score Risk Level Prophylaxis Regimen 0-1 Low Early ambulation 2 Moderate Order ONE of the following: *Sequential Compression Device (SCD) *Heparin 5000 units SQ BID 3-4 Higher Order ONE of the following medications: *Heparin 5000 units SQ TID *Enoxaparin/Lovenox 40 mg SQ daily (WT < 150 kg, CrCl > 30 mL/min) *Enoxaparin/Lovenox 30 mg SQ daily (WT < 150 kg, CrCl > 10-29 mL/min) *Enoxaparin/Lovenox 30 mg SQ BID (WT < 150 kg, CrCl > 30 mL/min) AND/OR *Sequential Compression Device (SCD) 5 or more Highest Order ONE of the following medications: *Heparin 5000 units SQ TID (Preferred with Epidurals) *Enoxaparin/Lovenox 40 mg SQ daily (WT < 150 kg, CrCl > 30 mL/min) *Enoxaparin/Lovenox 30 mg SQ daily (WT < 150 kg, CrCl > 10-29 mL/min) *Enoxaparin/Lovenox 30 mg SQ BID (WT < 150 kg, CrCl > 30 mL/min) AND *Sequential Compression Device (SCD) Assessment and Plan Problem List: (1) Altered mental status ICD Codes: R41.82 - Altered mental status, unspecified Status: Acute Plan: - Pt is a 71 y/o recently underwent removal of left orbital implant with left orbital dermis fat graft from left buttock and left lower eyelid retraction repair on 05/28/[address] Denise in [place]. Post operative pt has had issues with confusion. She had been taking Phenergan and Ultram. - She was admitted to the [facility] on 05/31. 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 She also had a Maxillofacial CT W/O IV Contrast (05/31/17) which noted post-op changes of previous removal of the left optic globe with fat density in the central left orbit, left periorbital soft tissue swelling that is pre-septal, no post-septal abnormal fluid collections, and no acute bony or sinus abnormalities. At that time it was felt that at time that the confusion might be medication related, specifically the Ultram and was recommended to stop the Ultram. Pt continued to take the Ultram and the Phenergan following that discharge. - Family felt that the patient continued to be confused following discharge and yesterday this seemed to worsen. Pt has not been taking her Enalapril, Levothyroxine, Simvastatin, Ambien since her surgery. Its not clear if the patient has been taking her Xanax or not. Pt had access to the medication but as far as the family and friends are aware she had not been taking it. - Labs at admission noted hypokalemia with K+ 2.9. Cont. IVF with NS with 20meq of K+ and monitor labs - Head CT (06/03) --> No acute intracranial abnormality is identified. There are stable chronic changes. Left orbit demonstrates a mild degree of less swelling than on the study from 3 days ago but otherwise appears similar following surgery. - Its not clear if this change in her mental status may be medication related vs. metabolic disturbance vs. infectious etiology vs. seizure activity vs. other. - We will hold the Phenergan and Ultram. Cont. Zofran PRN for nausea. Pt is allergic to acetaminophen. - Check TSH/Free T4 - Check CK levels, B12, Folate, Ammonia - EEG - Blood cultures - UA/urine culture - Telemetry - Monitor labs and vitals closely - Supportive care - DVT prophylaxis with SCDs (2) HTN (hypertension) ICD Codes: I10 - Essential (primary) hypertension Status: Chronic Plan: - Pt has not been taking her Enalapril for the last week - Her BP is significantly elevated in the ED, which could be contributing to her confusion. - Resume her Enalapril - Vasotec PRN - Clonidine PRN (3) Hypokalemia ICD Codes: E87.6 - Hypokalemia Status: Acute Plan: - Replace - Monitor labs (4) Diabetes mellitus type 2, noninsulin dependent ICD Codes: E11.9 - Type 2 diabetes mellitus without complications Status: Chronic Plan: - Hold OHA - NovoLog SSI (5) Hyperlipidemia ICD Codes: E78.5 - Hyperlipidemia, unspecified Status: Chronic Plan: - Cont. home meds (6) Hypothyroidism ICD Codes: E03.9 - Hypothyroidism, unspecified Status: Chronic Plan: - Pt has not taken her Levothyroxine in the last week. - Check TSH/Free T4 - Resume home dose of Levoxyl Assessment and Plan Patient examined. Assessment and plan formulated with Gena Harper PA-C. I agree with the above. delirium.appears to be encephalopathy related to medication vs metabolic. r/o infectious and htn. updated family at length. w/up ordered. neurology consulted. Problem Qualifiers (1) Altered mental status: Qualified Codes: R41.0 - Disorientation, unspecified Gena Harper Jun 03, 2017 09:56 Ramin Abdul MD Jun 03, 2017 20:51
[2017-06-03] MEDS ORDERED: ACETAMINOPHEN 325 MG TAB PO PRN (10:00)
[2017-06-03] MEDS ORDERED: ONDANSETRON HCL 4 MG/2 ML VIAL IV PRN (10:00)
[2017-06-03] MEDS ORDERED: AMBI10TA PO (12:43)
[2017-06-03] MEDS ORDERED: SIMV20TA PO (12:43)
[2017-06-03] MEDS ORDERED: ENAL10TA PO (12:43)
[2017-06-03] MEDS ORDERED: LEVO25TA4 PO (12:43)
[2017-06-03] MEDS ORDERED: SUMAtriptan SUCCINATE 50 MG TAB PO PRN (12:45)
[2017-06-03] MEDS ORDERED: cloNIDine HCL 0.1 MG TAB PO PRN (12:45)
[2017-06-03] MEDS ORDERED: DEXTROSE 50% IN WATER 50 ML VIAL(D50) IV PUSH PRN (12:45)
[2017-06-03] MEDS ORDERED: GLUCAGON 1 MG/ML VIAL OTHER PRN (12:45)
[2017-06-03] MEDS ORDERED: ENALAPRILAT 1.25 MG/ML VIAL IV PUSH PRN (12:45)
[2017-06-03] MEDS ORDERED: POLYETHYLENE GLYCOL PROPYLENE GLYCOL OPTH DRP D EACH EYE PRN (12:45)
[2017-06-03] MEDS: NS + KCL 20 MEQ INJ 1,000 ML IV SCH (13:36)
[2017-06-03] MEDS ORDERED: ARTIFICIAL TEARS OPTH SOLN 15 ML BTL RIGHT EYE PRN (14:00)
[2017-06-03] MEDS: ENALAPRIL MALEATE 10 MG TAB PO SCH (14:00)
[2017-06-03 14:22] LABS: BLOOD, URINE NEG (NEG); GLUCOSE,URINE NEG (NEG); KETONE, URINE 10 mg/dL (NEG); MUCUS URINE FEW /lpf (OCC); NITRITE,URINE NEG (NEG); PH, URINE 5.5 (5.0-8.5); SQUAMOUS EPITHELIAL CELL URINE 1 /hpf (0-5); TRANSITIONAL EPI CELLS, URINE <1 /hpf; URINE COLOR YELLOW (YELLW/STRAW)
[2017-06-03 14:24] LABS: COMMENT (UR) CATH-CULT NOT IND; CULTURE IF INDICATED CATH CULTURE NOT IND
[2017-06-03 14:38] LABS: FREE T4 1.5 NG/DL (0.76-1.46)
[2017-06-03 15:39] LABS: CREATINE KINASE 60 U/L (26-192)
[2017-06-03] MEDS: KETOROLAC TROMETHAMINE 30 MG/ML (IVP) VIAL IV PUSH PRN ×2 (16:47→22:38)
[2017-06-03] MEDS: INSULIN ASPART SUPPLEMENTAL SCALE SQ SCH ×2 (16:47→21:00)
--- NOTE | 2017-06-03 21:48 | MB ---
cc: JOSE C RAMOS M.D. DATE OF CONSULTATION 06/03/2017 REASON FOR CONSULTATION She is a 71-year-old seen in neurological consultation because of this acute confusional episode. HISTORY OF THE PRESENT ILLNESS The patient had left orbital surgery a few days ago, apparently on 05/28. Then 05/31 she went to [facility] because of confusion and on the following day she was discharged. She has been acting confused with a bizarre behavior. She received some Percocet and some tramadol. She had an MRI brain on 05/31 showing no acute abnormality. CT without contrast 05/31 also noted postoperative changes to the left globe with some soft tissue swelling that is preseptal and no post septal abnormal fluid collection. No sinus abnormalities. The patient has no psychiatric history. She is otherwise apparently healthy, active and independent. There is a history of migraine headaches. History of diabetes mellitus, hypertension. MEDICATIONS She takes: 1. Levothyroxine replacement. 2. And apparently also used sumatriptan as needed. 3. Metformin. 4. Enalapril. 5. Simvastatin. SOCIAL HISTORY She does not drink alcohol, and apparently lives with her daughter and grandson. NEUROLOGIC EXAMINATION Showed the patient to be acutely confused, somewhat paranoid, at times talking referring to the [place] government. Her phrases are broken and she does not complete sentences, at times she starts answering the conversation in an expected context of the conversation and then changes the subject. She is somewhat catatonic and there is some mild myoclonus or jerking movements intermittently. She resists when I try to do neck flexion. She gazes with the right eye in all directions and seems to have visual field perception bilaterally but she would at times bursts unusual numbers when I try to have her count fingers, instead of one or two she would say five or ten and sometimes her responses were abrupt. 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 Reflexes were 1-2+ and plantar responses flexor. LABORATORY DATA Ancillary data, CBC is normal today. Chemistry with sodium 136, potassium 2.9, glucose 145. BUN and creatinine normal. ALT and AST normal. TSH normal. B12 level low at 163. IMAGING CT brain today no acute intracranial abnormality. Left orbit showed mild degree of swelling but less than on the study 3 days ago, postop. ASSESSMENT Acute bizarre behavior, somewhat delusional and somewhat catatonic. She does not have much of a psychiatric history except for anxiety. She has not been on psychiatric medications that I can gather. She received some relatively minor amounts of pain killers and this is all discontinued now. MRI brain taken 3 days ago. She is afebrile. Therefore I think her symptomatology is going to subside. I will check a CPK on her. Will consider lumbar puncture, consider an MRI. We will request an EEG as well. Avoid painkiller medications. If there is more agitation then we might need to use some benzodiazepine, Ativan. Also depending upon clinical course we might need antipsychotics. Thank you for asking us to assist in her care. I will follow her with you. MD MANDY Lange/KK /8:05 PM /9:29 PM
[2017-06-04] VITALS (7 sets, daily range): BP systolic 123–147; BP diastolic 56–74; PULSE 58–74; RESP 16–20; TEMP 97.5–98.9; O2SAT 95–97
[2017-06-04] MEDS: NS + KCL 20 MEQ INJ 1,000 ML IV SCH ×3 (00:39→19:00)
[2017-06-04] MEDS: KETOROLAC TROMETHAMINE 30 MG/ML (IVP) VIAL IV PUSH PRN ×3 (06:19→21:40)
[2017-06-04] MEDS: LEVOTHYROXINE SODIUM 25 MCG TAB PO SCH (06:19)
[2017-06-04] MEDS: INSULIN ASPART SUPPLEMENTAL SCALE SQ SCH ×4 (08:00→21:42)
[2017-06-04] MEDS: PRAVASTATIN SOD 40 MG TAB PO SCH (09:56)
[2017-06-04] MEDS: ENALAPRIL MALEATE 10 MG TAB PO SCH (09:56)
[2017-06-04 09:57] LABS: BICARBONATE 24.8 MEQ/L (21.0-32.0); POTASSIUM 3.4 MEQ/L (3.5-5.1)
[2017-06-04] MEDS: CYANOCOBALAMIN 1000 MCG/ML VIAL IM SCH (09:58)
--- NOTE | 2017-06-04 10:07 | HHI.PR ---
Subjective Remarks Pt much more alert and conversive this morning. She is still somewhat confused She oriented to self/person and place but not oriented to time. She complains of no BM in a few days. Pt ate all of her breakfast without difficulty Pt did sleep well last night Objective Vitals Vital Signs Date Time Temp Pulse Resp B/P (MAP) Pulse Ox O2 Delivery O2 Flow Rate FiO2 06/04/17 08:00 97.5 63 20 134/67 (89) 97 06/04/17 06:00 98.4 68 19 147/73 (97) 95 06/03/17 22:00 98.4 60 17 156/70 (98) 95 06/03/17 17:00 99.1 70 20 175/98 (123) 94 06/03/17 16:19 56 16 150/87 (108) 97 06/03/17 14:36 72 18 145/64 (91) 97 Room Air 06/03/17 13:34 66 18 185/72 (109) 97 Room Air 06/03/17 11:30 90 18 179/84 (115) 95 Room Air 06/03/17 09:51 98.5 85 18 188/88 (121) 97 Room Air Result Diagram: 06/03/17 0700 06/03/17 0700 Other Results Laboratory Tests Test 06/03/17 07:00 06/03/17 13:25 06/04/17 00:19 White Blood Count 10.2 TH/MM3 Red Blood Count 4.83 MIL/MM3 Hemoglobin 13.6 GM/DL Hematocrit 41.8 % Mean Corpuscular Volume 86.6 FL Mean Corpuscular Hemoglobin 28.2 PG Mean Corpuscular Hemoglobin Concent 32.5 % Red Cell Distribution Width 14.9 % Platelet Count 325 TH/MM3 Mean Platelet Volume 8.4 FL Neutrophils (%) (Auto) 67.8 % Lymphocytes (%) (Auto) 22.5 % Monocytes (%) (Auto) 9.0 % Eosinophils (%) (Auto) 0.3 % Basophils (%) (Auto) 0.4 % Neutrophils # (Auto) 6.9 TH/MM3 Lymphocytes # (Auto) 2.3 TH/MM3 Monocytes # (Auto) 0.9 TH/MM3 Eosinophils # (Auto) 0.0 TH/MM3 Basophils # (Auto) 0.0 TH/MM3 CBC Comment DIFF FINAL Differential Comment Prothrombin Time 11.2 SEC Prothromb Time International Ratio 1.0 RATIO Activated Partial Thromboplast Time 23.5 SEC Blood Urea Nitrogen 17 MG/DL Creatinine 0.84 MG/DL Random Glucose 145 MG/DL Total Protein 7.6 GM/DL Albumin 4.1 GM/DL Calcium Level 9.1 MG/DL Alkaline Phosphatase 78 U/L Aspartate Amino Transf (AST/SGOT) 18 U/L Alanine Aminotransferase (ALT/SGPT) 25 U/L Total Bilirubin 0.5 MG/DL Sodium Level 136 MEQ/L Potassium Level 2.9 MEQ/L Chloride Level 99 MEQ/L Carbon Dioxide Level 28.1 MEQ/L Anion Gap 9 MEQ/L Estimat Glomerular Filtration Rate 68 ML/MIN Troponin I LESS THAN 0.02 NG/ML Ethyl Alcohol Level LESS THAN 3 MG/DL Urine Color YELLOW Urine Turbidity CLEAR Urine pH 5.5 Urine Specific Dolliver 1.013 Urine Protein TRACE mg/dL Urine Glucose (UA) NEG mg/dL Urine Ketones 10 mg/dL Urine Occult Blood NEG Urine Nitrite NEG Urine Bilirubin NEG Urine Urobilinogen LESS THAN 2.0 MG/DL Urine Leukocyte Esterase TRACE Urine RBC 1 /hpf Urine WBC 3 /hpf Urine Squamous Epithelial Cells 1 /hpf Urine Transitional Epithelial Cells <1 /hpf Urine Mucus FEW /lpf Microscopic Urinalysis Comment CATH-CULT NOT IND Ammonia 25 MCMOL/L Total Creatine Kinase 60 U/L 45 U/L Vitamin B12 Level 163 PG/ML Folate GREATER THAN 20.0 NG/ML Free Thyroxine 1.50 NG/DL Thyroid Stimulating Hormone 3rd Gen 1.630 uIU/ML Urine Opiates Screen NEG Urine Barbiturates Screen NEG Urine Amphetamines Screen NEG Urine Benzodiazepines Screen NEG Urine Cocaine Screen NEG Urine Cannabinoids Screen NEG Imaging Last Impressions Head CT 06/03/17 0732 Signed Impressions: Service Date/Time: Saturday, June 03, 2017 07:41 - CONCLUSION: 1. No acute intracranial abnormality is identified. There are stable chronic changes, as above. 2. Left orbit demonstrates a mild degree of less swelling than on the study from 3 days ago but otherwise appears similar following surgery. Jericho Gilmore MD MRI Brain (05/31/17) 1. No acute findings within the brain. Mild white matter ischemic changes. 2. 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 3. 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 Reportedly there is recent left orbit surgery. No drainable fluid collections. Maxillofacial CT W/O IV Contrast (05/31/17): 1. Post-op changes of previous removal of the left optic globe with fat density in the central left orbit. There is left periorbital soft tissue swelling that is pre-septal. No post-septal abnormal fluid collections. No acute bony or sinus abnormalities. Objective Remarks General: NAD, Awake and alert, oriented to self and place, but not time Chest: CTA Cardiac: Regular Abd: +BS, soft ND/NT Ext: No edema A/P Problem List: (1) Altered mental status ICD Codes: R41.82 - Altered mental status, unspecified Status: Acute Plan: - Pt is a 71 y/o recently underwent removal of left orbital implant with left orbital dermis fat graft from left buttock and left lower eyelid retraction repair on 05/28/[address] Denise in [place]. Post operative pt has had issues with confusion. She had been taking Phenergan and Ultram. - She was admitted to the [facility] on 05/31. 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 She also had a Maxillofacial CT W/O IV Contrast (05/31/17) which noted post-op changes of previous removal of the left optic globe with fat density in the central left orbit, left periorbital soft tissue swelling that is pre-septal, no post-septal abnormal fluid collections, and no acute bony or sinus abnormalities. At that time it was felt that at time that the confusion might be medication related, specifically the Ultram and was recommended to stop the Ultram. Pt continued to take the Ultram and the Phenergan following that discharge. - Family felt that the patient continued to be confused following discharge and yesterday this seemed to worsen. Pt has not been taking her Enalapril, Levothyroxine, Simvastatin, Ambien since her surgery. Its not clear if the patient has been taking her Xanax or not. Pt had access to the medication but as far as the family and friends are aware she had not been taking it. - Head CT (06/03) --> No acute intracranial abnormality is identified. There are stable chronic changes. Left orbit demonstrates a mild degree of less swelling than on the study from 3 days ago but otherwise appears similar following surgery. - With patient improving mental status today her symptoms may be more related to medications - Will continue workup to rule out metabolic disturbance vs. infectious etiology vs. seizure activity vs. other. - Appreciate Neurology consultation. - We will hold the Phenergan and Ultram. Cont. Zofran PRN for nausea. Pt is allergic to acetaminophen. - Labs at admission noted hypokalemia with K+ 2.9. Pt was cont. IVF with NS with 20meq of K+ - Awaiting repeat labs for today - TSH 1.630/Free T4 1.50 - CK level 60, B12 163, Folate greater than 20, Ammonia 25 - EEG is pending - Blood cultures are pending - UA negative. - Telemetry - Monitor labs and vitals closely - Supportive care - DVT prophylaxis with SCDs (2) HTN (hypertension) ICD Codes: I10 - Essential (primary) hypertension Status: Chronic Plan: - Pt has not been taking her Enalapril for the last week - Her BP was significantly elevated in the ED, which could be contributing to her confusion. - BP improved with resuming her Enalapril - Vasotec PRN - Clonidine PRN (3) Hypokalemia ICD Codes: E87.6 - Hypokalemia Status: Acute Plan: - Replace - Monitor labs (4) Diabetes mellitus type 2, noninsulin dependent ICD Codes: E11.9 - Type 2 diabetes mellitus without complications Status: Chronic Plan: - Hold OHA - NovoLog SSI (5) Hyperlipidemia ICD Codes: E78.5 - Hyperlipidemia, unspecified Status: Chronic Plan: - Cont. home meds (6) Hypothyroidism ICD Codes: E03.9 - Hypothyroidism, unspecified Status: Chronic Plan: - Pt has not taken her Levothyroxine in the last week. - Cont. Levoxyl Assessment and Plan Patient examined. Assessment and plan formulated with Gena Harper PA-C. I agree with the above. Problem Qualifiers (1) Altered mental status: Qualified Codes: R41.0 - Disorientation, unspecified (2) HTN (hypertension): Qualified Codes: I10 - Essential (primary) hypertension Gena Harper 25, 2017 10:07 Kevin Leonard DO Jun 06, 2017 09:52
--- NOTE | 2017-06-04 13:59 | EKG ---
Date Performed: 06/03/2017 Time Performed: 08:25:33 PTAGE: 65 years EKG: Sinus rhythm POSSIBLE LEFT ATRIAL ENLARGEMENT POSSIBLE LEFT VENTRICULAR HYPERTROPHY NONSPECIFIC T-WAVE ABNORMALIT Y Compared to prior tracing no significant change ABNORMAL ECG PREVIOUS TRACING : 08/21/2012 19.33 DOCTOR: Jasvir Reynolds Interpretating Date/Time 06/04/2017 13:58:02
--- NOTE | 2017-06-04 18:31 | HHI.PR ---
Review/Management Daily Summary 06/04 EEG briefly seen, not ictal exam she is much more participant but still confused and making up info, establishes eye contact and carries a conversation which she could do yest but talks nonrelevant things all the time nonfocal motor likely metabolic encephalopathy along psych sources for delirium no anticonvulsants monitor and consider psych consult Subjective Subjective Comments less confused Active Medications Current Medications Medications (Trade) Dose Ordered Sig/Fanny Route Start Time Stop Time Status Last Admin (NS Flush) 2 ml UNSCH PRN IV FLUSH 06/03/17 07:30 (Zofran Inj) 4 mg Q6H PRN IV 06/03/17 10:00 06/03/17 14:43 (Vasotec Inj) 1.25 mg Q6H PRN IV PUSH 06/03/17 12:45 06/03/17 13:36 (Catapres) 0.1 mg Q6H PRN PO 06/03/17 12:45 Potassium Chloride/Sodium Chloride 1,000 ml @ 100 mls/hr Q10H IV 06/03/17 13:00 06/04/17 09:57 (NovoLOG SUPPLEMENTAL SCALE) 1 ACHS SLIDING SCALE SQ 06/03/17 17:00 06/04/17 12:00 (Vasotec) 10 mg DAILY PO 06/03/17 14:00 06/04/17 09:56 (Synthroid) 25 mcg DAILY@0600 PO 06/04/17 06:00 06/04/17 06:19 (Pravachol) 40 mg DAILY PO 06/04/17 09:00 06/04/17 09:56 (D50w (Vial) Inj) 50 ml UNSCH PRN IV PUSH 06/03/17 12:45 (Glucagon Inj) 1 mg UNSCH PRN OTHER 06/03/17 12:45 (Tears Naturale Opth Soln) 2 drop Q4H PRN RIGHT EYE 06/03/17 14:00 (Toradol Inj) 15 mg Q6H PRN IV PUSH 06/03/17 15:45 06/08/17 15:44 06/04/17 15:26 (Vitamin B12 Inj) 1,000 mcg DAILY IM 06/04/17 09:00 06/06/17 09:01 06/04/17 09:58 Allergies Allergies Coded Allergies erythromycin base (Unverified Allergy, Severe, swelling throat, 05/31/17) hydrocodone (Unverified Allergy, Severe, NAUSEA AND HIVES, 05/31/17) morphine (Unverified Allergy, Severe, INCREASED HEART RATE; PARANOID, 05/31/17) propoxyphene (Unverified Allergy, Severe, HIVES, DYSPHAGIA, SOB, 05/31/17) acetaminophen (Unverified Allergy, Intermediate, Hives, 05/31/17) doxycycline (Unverified Allergy, Unknown, 05/31/17) minocycline (Unverified Allergy, Unknown, 05/31/17) tigecycline (Unverified Allergy, Unknown, 05/31/17) Exam I&O / VS 06/04/17 06/04/17 06/05/17 15:00 23:00 07:00 # Voids 1 Vital Signs Date Time Temp Pulse Resp B/P (MAP) Pulse Ox O2 Delivery O2 Flow Rate FiO2 06/04/17 16:00 98.3 66 20 123/56 (78) 97 06/04/17 12:00 97.9 58 20 130/60 (83) 95 06/04/17 08:00 97.5 63 20 134/67 (89) 97 06/04/17 08:00 67 06/04/17 06:00 98.4 68 19 147/73 (97) 95 06/03/17 22:00 98.4 60 17 156/70 (98) 95 Objective Micro and Labs Laboratory Tests Test 06/04/17 00:19 Blood Urea Nitrogen 11 Creatinine 0.46 Random Glucose 97 Calcium Level 8.1 Sodium Level 142 Potassium Level 3.4 Chloride Level 107 Carbon Dioxide Level 24.8 Anion Gap 10 Estimat Glomerular Filtration Rate 134 Total Creatine Kinase 45 Date/Time Source Procedure Growth Status 06/03/17 13:50 Blood Peripheral Aerobic Blood Culture - Preliminary NO GROWTH IN 1 DAY Resulted 06/03/17 13:50 Blood Peripheral Anaerobic Blood Culture - Preliminary NO GROWTH IN 1 DAY Resulted Yue Barlow MD Jun 04, 2017 18:31
--- NOTE | 2017-06-04 22:18 | MG ---
cc: YON SCHREIBER Lab No: Date: 06/04/2017 Age: Sex: F Race: ELECTROENCEPHALOGRAM NUMBER [id number] INTRODUCTION Awake and asleep. Hyperventilation not performed. A 71-year-old woman, change in mental status, hallucinations diabetes. MEDICATIONS Toradol. DESCRIPTION A diffuse 8 Hz rhythm is noted. Sometimes a 6.5 Hz diffuse slowing is noted. At epoch 61 some sharply contoured theta waves are noted over the left mid temporal head region. The background in general was of an higher amplitude about 100 microvolts. Some movement artifact and muscle artifact is seen. An upper body twitch occurs which did not correlate with any electroencephalographic seizures. Some right foot twitching also is seen but those also do not correlate with any seizures nor does an upper body twitch. This occurs during photic stimulation. Photic stimulation was performed without significant posterior driving. IMPRESSION Some diffuse slowing consistent with at times a moderate diffuse encephalopathy. Occasionally some phase reversing sharply contoured waves are seen over the left mid temporal head region. A lot of twitching is noted but none of that correlates with any seizure activity. A left temporal abnormality should be ruled out. A seizure focus on the left temporal lobe could be considered. MD JEFFERSON Mcdowell/FOSTER /8:58 PM /10:09 PM
[2017-06-05 04:00] VITALS: BP 180/80; PULSE 66; RESP 18; TEMP 98.2; O2SAT 97
[2017-06-05] MEDS: NS + KCL 20 MEQ INJ 1,000 ML IV SCH (05:00)
[2017-06-05] MEDS: LEVOTHYROXINE SODIUM 25 MCG TAB PO SCH (05:43)
[2017-06-05 08:00] VITALS: BP_SYST 123; BP_SYST 160; BP_DIAS 76; BP_DIAS 77; PULSE 102; PULSE 65; RESP 20; TEMP 98.3; TEMP 99.8; O2SAT 96; O2SAT 99
[2017-06-05] MEDS: INSULIN ASPART SUPPLEMENTAL SCALE SQ SCH ×4 (08:00→20:41)
--- NOTE | 2017-06-05 08:56 | HHI.PR ---
Subjective Remarks Pt more awake and alert today More conversive and making sense Daughter reports still some episode of confusion Objective Vitals Vital Signs Date Time Temp Pulse Resp B/P (MAP) Pulse Ox O2 Delivery O2 Flow Rate FiO2 06/05/17 04:00 98.2 66 18 180/80 (113) 97 06/04/17 23:52 98.9 74 16 141/74 (96) 96 06/04/17 21:50 60 06/04/17 20:00 98.3 66 18 137/66 (89) 96 06/04/17 16:00 98.3 66 20 123/56 (78) 97 06/04/17 12:00 97.9 58 20 130/60 (83) 95 Result Diagram: 06/03/17 0700 06/04/17 0019 Imaging Last Impressions Head CT 06/03/17 0732 Signed Impressions: Service Date/Time: Saturday, June 03, 2017 07:41 - CONCLUSION: 1. No acute intracranial abnormality is identified. There are stable chronic changes, as above. 2. Left orbit demonstrates a mild degree of less swelling than on the study from 3 days ago but otherwise appears similar following surgery. Jericho Gilmore MD MRI Brain (05/31/17) 1. No acute findings within the brain. Mild white matter ischemic changes. 2. 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 3. 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 Reportedly there is recent left orbit surgery. No drainable fluid collections. Maxillofacial CT W/O IV Contrast (05/31/17): 1. Post-op changes of previous removal of the left optic globe with fat density in the central left orbit. There is left periorbital soft tissue swelling that is pre-septal. No post-septal abnormal fluid collections. No acute bony or sinus abnormalities. Objective Remarks General: NAD, Awake and alert, oriented to self and place, but not time Chest: CTA Cardiac: Regular Abd: +BS, soft ND/NT Ext: No edema A/P Problem List: (1) Altered mental status ICD Codes: R41.82 - Altered mental status, unspecified Status: Acute Plan: - Pt is a 71 y/o recently underwent removal of left orbital implant with left orbital dermis fat graft from left buttock and left lower eyelid retraction repair on 05/28/[address] Denise in [place]. Post operative pt has had issues with confusion. She had been taking Phenergan and Ultram. - She was admitted to the [facility] on 05/31. 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 She also had a Maxillofacial CT W/O IV Contrast (05/31/17) which noted post-op changes of previous removal of the left optic globe with fat density in the central left orbit, left periorbital soft tissue swelling that is pre-septal, no post-septal abnormal fluid collections, and no acute bony or sinus abnormalities. At that time it was felt that at time that the confusion might be medication related, specifically the Ultram and was recommended to stop the Ultram. Pt continued to take the Ultram and the Phenergan following that discharge. - Family felt that the patient continued to be confused following discharge and yesterday this seemed to worsen. Pt has not been taking her Enalapril, Levothyroxine, Simvastatin, Ambien since her surgery. Its not clear if the patient has been taking her Xanax or not. Pt had access to the medication but as far as the family and friends are aware she had not been taking it. - Head CT (06/03) --> No acute intracranial abnormality is identified. There are stable chronic changes. Left orbit demonstrates a mild degree of less swelling than on the study from 3 days ago but otherwise appears similar following surgery. - Appreciate Neurology consultation. - We will hold the Phenergan and Ultram. Cont. Zofran PRN for nausea. Pt is allergic to acetaminophen. - Labs at admission noted hypokalemia with K+ 2.9. Pt was cont. IVF with NS with 20meq of K+ with improvement to 3.4 (06/04). - Awaiting repeat labs for today - TSH 1.630/Free T4 1.50 - CK level 60, B12 163, Folate greater than 20, Ammonia 25 - Pt started on B12 supplement. - EEG (06/04) --> some diffuse slowing consistent with at times a moderate diffuse encephalopathy, occasionally some phase reversing sharply contoured waves are seen over the left mid temporal head region. A lot of twitching is noted but none of that correlates with any seizure activity. - Neurology feels that the pts symptoms are likely metabolic encephalopathy along with psych sources for delirium, and is not recommending any anticonvulsants. - Consider Psych consult. - Blood cultures with NGTD - UA negative. - Telemetry - PT evaluation today - Supportive care - DVT prophylaxis with SCDs (2) HTN (hypertension) ICD Codes: I10 - Essential (primary) hypertension Status: Chronic Plan: - Pt has not been taking her Enalapril for the last week - Her BP was significantly elevated in the ED, which could be contributing to her confusion. - BP improved with resuming her Enalapril - Vasotec PRN - Clonidine PRN (3) Hypokalemia ICD Codes: E87.6 - Hypokalemia Status: Acute Plan: - Replace - Monitor labs (4) Diabetes mellitus type 2, noninsulin dependent ICD Codes: E11.9 - Type 2 diabetes mellitus without complications Status: Chronic Plan: - Resume Metformin 500mg po BID - NovoLog SSI (5) Hyperlipidemia ICD Codes: E78.5 - Hyperlipidemia, unspecified Status: Chronic Plan: - Cont. home meds (6) Hypothyroidism ICD Codes: E03.9 - Hypothyroidism, unspecified Status: Chronic Plan: - Pt has not taken her Levothyroxine in the last week. - Cont. Levoxyl Assessment and Plan Patient examined. Assessment and plan formulated with Gena Harper PA-C. I agree with the above. Problem Qualifiers (1) Altered mental status: Qualified Codes: R41.0 - Disorientation, unspecified (2) HTN (hypertension): Qualified Codes: I10 - Essential (primary) hypertension Gena Harper Jun 05, 2017 08:56 Kevin Leonard DO Jun 06, 2017 09:52
[2017-06-05] MEDS: PRAVASTATIN SOD 40 MG TAB PO SCH (09:15)
[2017-06-05] MEDS: ENALAPRIL MALEATE 10 MG TAB PO SCH ×2 (09:15→20:14)
[2017-06-05] MEDS: CYANOCOBALAMIN 1000 MCG/ML VIAL IM SCH (09:16)
[2017-06-05] MEDS ORDERED: MAGNESIUM HYDROXIDE SUSP 30 ML CUP PO ONE (09:45)
[2017-06-05] MEDS ORDERED: MAGNESIUM HYDROXIDE SUSP 30 ML CUP PO PRN (09:45)
[2017-06-05] MEDS ORDERED: ENALAPRIL MALEATE 10 MG TAB PO ONE (11:15)
[2017-06-05 12:00] VITALS: BP_SYST 122; BP_SYST 139; BP_DIAS 65; BP_DIAS 79; PULSE 112; PULSE 61; RESP 20; TEMP 98; TEMP 98.8; O2SAT 95; O2SAT 99
[2017-06-05 12:34] LABS: BICARBONATE 24.7 MEQ/L (21.0-32.0); POTASSIUM 3.8 MEQ/L (3.5-5.1)
[2017-06-05] MEDS: DOCUSATE SODIUM 100 MG CAP PO SCH ×2 (14:27→20:14)
--- NOTE | 2017-06-05 15:16 | HHI.PR ---
Review/Management Daily Summary 06/04 EEG briefly seen, not ictal exam she is much more participant but still confused and making up info, establishes eye contact and carries a conversation which she could do yest but talks nonrelevant things all the time nonfocal motor likely metabolic encephalopathy along psych sources for delirium no anticonvulsants monitor and consider psych consult 06/05 she is more alert and more appropriate daughetr at bedside afebrile will follow peripherally PT for oob activities Subjective Subjective Comments No acute events reported No headache Active Medications Current Medications Medications (Trade) Dose Ordered Sig/Fanny Route Start Time Stop Time Status Last Admin (NS Flush) 2 ml UNSCH PRN IV FLUSH 06/03/17 07:30 (Zofran Inj) 4 mg Q6H PRN IV 06/03/17 10:00 06/03/17 14:43 (Vasotec Inj) 1.25 mg Q6H PRN IV PUSH 06/03/17 12:45 06/03/17 13:36 (Catapres) 0.1 mg Q6H PRN PO 06/03/17 12:45 (NovoLOG SUPPLEMENTAL SCALE) 1 ACHS SLIDING SCALE SQ 06/03/17 17:00 06/04/17 21:42 (Synthroid) 25 mcg DAILY@0600 PO 06/04/17 06:00 06/05/17 05:43 (Pravachol) 40 mg DAILY PO 06/04/17 09:00 06/05/17 09:15 (D50w (Vial) Inj) 50 ml UNSCH PRN IV PUSH 06/03/17 12:45 (Glucagon Inj) 1 mg UNSCH PRN OTHER 06/03/17 12:45 (Tears Naturale Opth Soln) 2 drop Q4H PRN RIGHT EYE 06/03/17 14:00 (Toradol Inj) 15 mg Q6H PRN IV PUSH 06/03/17 15:45 06/08/17 15:44 06/04/17 21:40 (Vitamin B12 Inj) 1,000 mcg DAILY IM 06/04/17 09:00 06/06/17 09:01 06/05/17 09:16 (Colace) 100 mg BID PO 06/05/17 09:45 06/05/17 14:27 (Milk Of Magnesia Liq) 30 ml DAILY PRN PO 06/05/17 09:45 (Glucophage) 500 mg BIDPC PO 06/05/17 18:00 (Vasotec) 20 mg BID PO 06/05/17 21:00 Allergies Allergies Coded Allergies erythromycin base (Unverified Allergy, Severe, swelling throat, 05/31/17) hydrocodone (Unverified Allergy, Severe, NAUSEA AND HIVES, 05/31/17) morphine (Unverified Allergy, Severe, INCREASED HEART RATE; PARANOID, 05/31/17) propoxyphene (Unverified Allergy, Severe, HIVES, DYSPHAGIA, SOB, 05/31/17) acetaminophen (Unverified Allergy, Intermediate, Hives, 05/31/17) doxycycline (Unverified Allergy, Unknown, 05/31/17) minocycline (Unverified Allergy, Unknown, 05/31/17) tigecycline (Unverified Allergy, Unknown, 05/31/17) Exam I&O / VS 06/05/17 06/05/17 06/06/17 15:00 23:00 07:00 Output Total 1500 ml Balance -1500 ml Output Urine Total 1500 ml Vital Signs Date Time Temp Pulse Resp B/P (MAP) Pulse Ox O2 Delivery O2 Flow Rate FiO2 06/05/17 12:00 98.0 61 20 139/65 (89) 95 06/05/17 08:00 98.3 65 20 160/77 (104) 96 06/05/17 04:00 98.2 66 18 180/80 (113) 97 06/04/17 23:52 98.9 74 16 141/74 (96) 96 06/04/17 21:50 60 06/04/17 20:00 98.3 66 18 137/66 (89) 96 06/04/17 16:00 98.3 66 20 123/56 (78) 97 Objective Micro and Labs Laboratory Tests Test 06/05/17 11:54 Blood Urea Nitrogen 10 Creatinine 0.53 Random Glucose 177 Calcium Level 7.9 Sodium Level 142 Potassium Level 3.8 Chloride Level 111 Carbon Dioxide Level 24.7 Anion Gap 6 Estimat Glomerular Filtration Rate 114 Date/Time Source Procedure Growth Status 06/03/17 13:50 Blood Peripheral Aerobic Blood Culture - Preliminary NO GROWTH IN 2 DAYS Resulted 06/03/17 13:50 Blood Peripheral Anaerobic Blood Culture - Preliminary NO GROWTH IN 2 DAYS Resulted Yue Barlow MD Jun 05, 2017 15:16
[2017-06-05 16:00] VITALS: BP 160/70; PULSE 68; RESP 20; TEMP 97.2; O2SAT 97
[2017-06-05] MEDS: metFORMIN HCL 500 MG TAB PO SCH (18:08)
[2017-06-05 20:10] VITALS: BP 147/63; PULSE 70; RESP 18; TEMP 98.1; O2SAT 97
[2017-06-05 20:41] VITALS: PULSE 60
[2017-06-05] MEDS: ALPRAZolam 0.25 MG TAB PO SCH (20:46)
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
[2017-06-05 21:24] LABS: FREE T4 1.32 NG/DL (0.76-1.46)
[2017-06-06] VITALS: BP 139/67; PULSE 67; RESP 18; TEMP 98.6; O2SAT 96
[2017-06-06 04:00] VITALS: BP 132/71; PULSE 88; RESP 18; TEMP 97.6; O2SAT 95
[2017-06-06] MEDS: ALPRAZolam 0.25 MG TAB PO SCH (06:00)
[2017-06-06] MEDS: LEVOTHYROXINE SODIUM 25 MCG TAB PO SCH (06:13)
[2017-06-06 08:00] VITALS: BP 158/70; PULSE 66; RESP 20; TEMP 97.8; O2SAT 98
[2017-06-06] MEDS: INSULIN ASPART SUPPLEMENTAL SCALE SQ SCH (08:00)
[2017-06-06] MEDS: CYANOCOBALAMIN 1000 MCG/ML VIAL IM SCH (09:02)
[2017-06-06] MEDS: ENALAPRIL MALEATE 10 MG TAB PO SCH (09:03)
[2017-06-06] MEDS: PRAVASTATIN SOD 40 MG TAB PO SCH (09:03)
[2017-06-06] MEDS: DOCUSATE SODIUM 100 MG CAP PO SCH (09:03)
[2017-06-06] MEDS: metFORMIN HCL 500 MG TAB PO SCH (09:03)
--- NOTE | 2017-06-06 09:39 | HHI.FF ---
Face to Face Verification Diagnosis: (1) Altered mental status (2) Hypothyroidism (3) HTN (hypertension) (4) Diabetes mellitus type 2, noninsulin dependent Physical Therapy Order: Evaluate and Treat, Improve ambulation, Strength and gait training Home Health Nursing Order: Medical education Signs/symptoms of disease process Medication education-adverse effect Nursing assessment with vital signs I have seen patient Nadai Cowart on 06/06/17. My clinical findings support the need for the requested home health care services because: Ltd mobility - disease progression Deconditioned w/ increased weakness Med compliance is questionable Limited ability to care for self Need for psychosocial assistance I certify that my clinical findings support that this patient is homebound because: Impaired cognitive ability/safety Unsafe to leave home unassisted Need for psychosocial assistance Unable to use public transportation Kevin Leonard DO Jun 06, 2017 09:39
[2017-06-06] MEDS ORDERED: ENAL10TA PO (09:44)
[2017-06-06] MEDS ORDERED: ALPR.25 PO (09:44)
--- NOTE | 2017-06-06 09:53 | HHI.DCPOC ---
Discharge Care Plan Diagnosis: (1) Altered mental status (2) Hypothyroidism (3) Diabetes mellitus type 2, noninsulin dependent (4) Anxiety (5) HTN (hypertension) Goals to Promote Your Health * To prevent worsening of your condition and complications * To maintain your health at the optimal level Directions to Meet Your Goals Take your medications as prescribed Follow your dietary instruction Follow activity as directed Keep your appointments as scheduled Take your immunizations and boosters as scheduled If your symptoms worsen call your PCP, if no PCP go to Urgent Care Center or Emergency Room Smoking is Dangerous to Your Health. Avoid second hand smoke Call the 24-hour hour crisis hotline for domestic abuse at Kevin Leonard DO Jun 06, 2017 09:53
--- NOTE | 2017-06-06 10:00 | HHI.DS ---
Discharge Summary Admission Date Jun 03, 2017 at 09:22 Discharge Date: Jun 06, 2017 Admitting Diagnosis altered mental status/hypokalemia (1) Altered mental status Diagnosis: Principal ICD Codes: R41.82 - Altered mental status, unspecified Status: Acute (2) HTN (hypertension) Diagnosis: Principal ICD Codes: I10 - Essential (primary) hypertension Status: Chronic (3) Hypokalemia Diagnosis: Principal ICD Codes: E87.6 - Hypokalemia Status: Acute (4) Diabetes mellitus type 2, noninsulin dependent Diagnosis: Secondary ICD Codes: E11.9 - Type 2 diabetes mellitus without complications Status: Chronic (5) Hyperlipidemia Diagnosis: Secondary ICD Codes: E78.5 - Hyperlipidemia, unspecified Status: Chronic (6) Hypothyroidism Diagnosis: Secondary ICD Codes: E03.9 - Hypothyroidism, unspecified Status: Chronic (7) Anxiety Diagnosis: Principal ICD Codes: F41.9 - Anxiety disorder, unspecified Consultants Dr. Juan Antonio Rajan, Psychiatry Brief History Ms. Cowart is a 71 y/o female with HTN, diabetes, hyperlipidemia and hypothyroidism. Pt recently underwent removal of left orbital implant with left orbital dermis fat graft from left buttock and left lower eyelid retraction repair on 05/28/[address] Denise in [place]. After surgery pt was given Percocet and started having vomiting which she attributed to an allergy to Tylenol. The pain meds were changed to tramadol and she was given Zofran and Benadryl. The pt continued to have vomiting and the Zofran was changed to Phenergan. Pts family and friends who are bedside provide the history as the pt is unable to provide much meaningful information. The patient has reportedly had been confused on and off since after the surgery. She was admitted to the [facility] on 05/31. 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 Reportedly there is recent left orbit surgery. No drainable fluid collections. She also had a Maxillofacial CT W/O IV Contrast (05/31/17) which noted post-op changes of previous removal of the left optic globe with fat density in the central left orbit, left periorbital soft tissue swelling that is pre-septal, no post-septal abnormal fluid collections, and no acute bony or sinus abnormalities. It was felt that at time that the confusion might be medication related, specifically the Ultram and was recommended to stop the Ultram. According to the documentation the pt improved clinically with regards to her mental status and was discharged from [facility] on 06/01. Pt continued to take the Ultram and the Phenergan following that discharge. But she was not taking the Ultram very often per the family, pt has taken 3 tablets since Sunday, two of which were yesterday. Pt has not been taking the Benadryl, she only took one dose after the Percocet the first day after surgery. Pt was discharged and was seen by Dr. Denise on Sunday, 06/01, and family reports that the doctor felt that the pt was doing well with regards to the surgery. Family felt that the patient continued to be confused following discharge and yesterday this seemed to worsen. Her family friend has been taking care of her since surgery and reports that she has been exhibiting a lot of confusion and bizarre behavior in the last 24 hours. She reportedly placed dog food in her suitcase and put her tooth brush in the dog crates and was packing clothes in plastic bags. She also reports that the pt seemed to be somewhat aggressive last night which is extremely unusual for her. Pt reports that she "feels hot" for the last day or so and feels that its getting worse and feels "tired" but otherwise denies any other complaints. No reported N/V, SOB, chest pain, abd pain. Pts last BM was Sunday, 06/01. Pt hadn't had a BM since the Sunday prior to surgery. Pt is alert and talking. She is not oriented to time, place or situation. She recognizes her family and friends present at bedside. Pt has not been taking her Enalapril, Levothyroxine, Simvastatin, Ambien since her surgery. Its not clear if the patient has been taking her Xanax or not. Pt had access to the medication but as far as the family and friends are aware she had not been taking it. CBC/BMP: 06/03/17 0700 06/05/17 1154 Significant Findings Laboratory Tests Test 06/03/17 13:25 06/04/17 00:19 06/05/17 11:54 Urine Ketones 10 mg/dL (NEG) Urine Leukocyte Esterase TRACE (NEG) Urine Mucus FEW /lpf (OCC) Vitamin B12 Level 163 PG/ML (193-986) Folate GREATER THAN 20.0 NG/ML Free Thyroxine 1.50 NG/DL (0.76-1.46) Creatinine 0.46 MG/DL (0.50-1.00) Calcium Level 8.1 MG/DL (8.5-10.1) 7.9 MG/DL (8.5-10.1) Potassium Level 3.4 MEQ/L (3.5-5.1) Random Glucose 177 MG/DL (74-106) Chloride Level 111 MEQ/L (98-107) Imaging Last Impressions Head CT 06/03/17 0732 Signed Impressions: Service Date/Time: Sunday, June 03, 2017 07:41 - CONCLUSION: 1. No acute intracranial abnormality is identified. There are stable chronic changes, as above. 2. Left orbit demonstrates a mild degree of less swelling than on the study from 3 days ago but otherwise appears similar following surgery. Jericho Gilmore MD PE at Discharge General: NAD, Awake and alert, oriented to self and place, but not time Chest: CTA Cardiac: Regular Abd: +BS, soft ND/NT Ext: No edema Hospital Course (1) Altered mental status ICD Codes: R41.82 - Altered mental status, unspecified Status: Acute Plan: - Pt is a 71 y/o recently underwent removal of left orbital implant with left orbital dermis fat graft from left buttock and left lower eyelid retraction repair on 05/28/[address] Denise in [place]. Post operative pt has had issues with confusion. She had been taking Phenergan and Ultram. - She was admitted to the [facility] on 05/31. 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 She also had a Maxillofacial CT W/O IV Contrast (05/31/17) which noted post-op changes of previous removal of the left optic globe with fat density in the central left orbit, left periorbital soft tissue swelling that is pre-septal, no post-septal abnormal fluid collections, and no acute bony or sinus abnormalities. At that time it was felt that at time that the confusion might be medication related, specifically the Ultram and was recommended to stop the Ultram. Pt continued to take the Ultram and the Phenergan following that discharge. - Family felt that the patient continued to be confused following discharge and yesterday this seemed to worsen. Pt has not been taking her Enalapril, Levothyroxine, Simvastatin, Ambien since her surgery. Its not clear if the patient has been taking her Xanax or not. Pt had access to the medication but as far as the family and friends are aware she had not been taking it. - Head CT (06/03) --> No acute intracranial abnormality is identified. There are stable chronic changes. Left orbit demonstrates a mild degree of less swelling than on the study from 3 days ago but otherwise appears similar following surgery. - Appreciate Neurology consultation. - Upon admission, We stopped the Phenergan and Ultram. Cont. Zofran PRN for nausea. Pt is allergic to acetaminophen. - Labs at admission noted hypokalemia with K+ 2.9. Pt was cont. IVF with NS with 20meq of K+ with improvement to 3.4 (06/04). - TSH 1.630/Free T4 1.50 - CK level 60, B12 163, Folate greater than 20, Ammonia 25 - Pt started on B12 supplement. - EEG (06/04) --> some diffuse slowing consistent with at times a moderate diffuse encephalopathy, occasionally some phase reversing sharply contoured waves are seen over the left mid temporal head region. A lot of twitching is noted but none of that correlates with any seizure activity. - Neurology feels that the pts symptoms are likely metabolic encephalopathy along with psych sources for delirium, and is not recommending any anticonvulsants. - Blood cultures with NGTD - UA negative. - Pt seen by Psychiatry. Appreciate input from Dr. Rajan. - Dr. Rajan felt that benzodiazepine withdrawal likely contributed to pt's AMS - Xanax resumed at low dose, but pt has declined this medication. - Pt will f/u with [facility]. Pt might benefit from starting an anti- depressant. Will defer to outpt Psychiatry - f/u with PCP, Dr. Bolivar Campos, in 1 week (2) HTN (hypertension) ICD Codes: I10 - Essential (primary) hypertension Status: Chronic Plan: - Pt has not been taking her Enalapril for the last week - Her BP was significantly elevated in the ED, which could be contributing to her confusion. - BP improved with resuming her Enalapril. Enalapril was increased to 20mg BID (3) Hypokalemia ICD Codes: E87.6 - Hypokalemia Status: Acute - resolved with repletion at admission (4) Diabetes mellitus type 2, noninsulin dependent ICD Codes: E11.9 - Type 2 diabetes mellitus without complications Status: Chronic Plan: - Resume Metformin 500mg po BID - NovoLog SSI (5) Hyperlipidemia ICD Codes: E78.5 - Hyperlipidemia, unspecified Status: Chronic Plan: - Cont. home meds (6) Hypothyroidism ICD Codes: E03.9 - Hypothyroidism, unspecified Status: Chronic Plan: - Pt has not taken her Levothyroxine in the last week. - Cont. Levoxyl Pt Condition on Discharge: Stable Discharge Disposition: Disch w/ Home Health Serv Discharge Instructions DIET: Follow Instructions for: Heart Healthy Diet Activities you can perform: Regular-No Restrictions Follow up Referrals: Ophthalmology - [address] Denise PCP Follow-up - [address] Bolivar Ponce Psychiatry Adult - 1 Week with [facility] New Medications: Alprazolam (Xanax) 0.25 Mg Tab 0.25 MG PO Q8HR for Anxiety and/or Insomnia, #21 TAB 0 Refills Enalapril (Enalapril) 10 Mg Tab 20 MG PO BID for htn, #60 TAB 0 Refills Continued Medications: Bacitracin Opth Oint (Bacitracin Opth Oint) 500 Unit/Gm Oint 1 APPLIC LEFT EYE TID for Infection, #1 TUBE 0 Refills Levothyroxine (Levothyroxine) 25 Mcg Tab 25 MCG PO DAILY for Thyroid, #30 TAB 0 Refills Metformin (Metformin) 1,000 Mg Tab 1000 MG PO BIDPC for Blood Sugar Management, #60 TAB 0 Refills With meals Polyethylene Glycol-Propylene Glycol Opth Drp (Systane Opth Drops) 0.4-0.3% Soln 1-2 DROP EACH EYE PRN PRN for DRY EYE, #1 BOTTLE 0 Refills Simvastatin (Simvastatin) 20 Mg Tab 20 MG PO DAILY for Cholesterol Management, #30 TAB 0 Refills Sumatriptan (Sumatriptan) 50 Mg Tab 50 MG PO ONCE PRN for MIGRAINE HEADACHE, TAB 0 Refills If a satisfactory response has not been obtained at 2 hours, a second dose may be administered Discontinued Medications: Alprazolam (Alprazolam) 1 Mg Tab 1 MG PO Q8H PRN for ANXIETY, TAB 0 Refills Cephalexin (Cephalexin) 500 Mg Cap 500 MG PO Q6H for Infection, CAP 0 Refills Enalapril (Enalapril) 10 Mg Tab 10 MG PO DAILY, #30 TAB 0 Refills Promethazine (Phenergan) 25 Mg Tablet 25 MG PO Q6H PRN for NAUSEA OR VOMITING, TAB 0 Refills Tramadol (Tramadol) 50 Mg Tab 50 MG PO Q4H PRN for PAIN, TAB 0 Refills Zolpidem (Ambien) 10 Mg Tab 10 MG PO HS PRN for INSOMNIA, TAB 0 Refills Kevin Leonard DO Jun 06, 2017 09:59
== END 2017-06-06 12:23 | disposition home health service (06) | DRG 896 ==
LOC: NEPC 06:26 → INTOOBSV 09:22 → OBSVTOIN 09:22 → NEDA 09:22 → EDBD 09:22 → N05A 16:32
PROVIDERS: ADMIT Hospitalist; ATTEND Hospitalist
DX: F13.239 Sedative, hypnotic or anxiolytic dependence with withdrawal, unspecified (principal); G93.41 Metabolic encephalopathy; G25.3 Myoclonus; F34.1 Dysthymic disorder; E11.9 Type 2 diabetes mellitus without complications; I10 Essential (primary) hypertension; E87.6 Hypokalemia; F41.9 Anxiety disorder, unspecified; M79.7 Fibromyalgia; E03.9 Hypothyroidism, unspecified; K21.9 Gastro-esophageal reflux disease without esophagitis; F43.10 Post-traumatic stress disorder, unspecified; G31.84 Mild cognitive impairment of uncertain or unknown etiology; D33.3 Benign neoplasm of cranial nerves; E78.5 Hyperlipidemia, unspecified; G43.909 Migraine, unspecified, not intractable, without status migrainosus; F32.9 Major depressive disorder, single episode, unspecified; M19.90 Unspecified osteoarthritis, unspecified site; R11.2 Nausea with vomiting, unspecified; Z79.84 Long term (current) use of oral hypoglycemic drugs
CPT/HCPCS: 70450; 70486; 70553; 80048; 80053; 80307; 81001; 82140; 82550; 82607; 82746; 82948; 84439; 84443; 84484; 85025; 85610; 85730; 87040; 93005; 95819; A9579; G0378; G8987-GP; G8988-GP; J1815; J1885; J2405; J3420; J3480